=== PATIENT | male | born 1945 | race Caucasian/White ===

== ENCOUNTER → 2016-12-19 | Outpatient (CLI) | payer OTHER ==
[~2016-12-19] MED LIST: AMOX875T PO; ASPI81TA28 PO; ATOR-22 PO; FLUC100T4 PO; FLUC200T4 PO; HMLI7525 SC; HYDR-5688 PO; IMDSR/30 PO; INSDGIPEN SC; ISR/30 PO; LOSA1TAB PO; NVLGI7030 SC; OXYC-57 PO; TEMA15CA4 PO
== END | disposition home or self-care (01) ==
LOC: C.LABSPEC 17:03
PROVIDERS: ATTEND Orthopaedic Surgery
DX: M86.142 Other acute osteomyelitis, left hand (principal)

== ENCOUNTER → 2017-01-30 | Outpatient (CLI) | payer OTHER | END | disposition home or self-care (01) | LOC: C.LABSPEC 17:11 | PROVIDERS: ATTEND Orthopaedic Surgery | DX: M86.9 Osteomyelitis, unspecified (principal); I96 Gangrene, not elsewhere classified ==

== ENCOUNTER → 2017-02-07 | Outpatient (CLI) | payer OTHER | END | disposition home or self-care (01) | LOC: C.LABSPEC 12:23 | PROVIDERS: ATTEND Internal Medicine Infectious Disease | DX: T81.4XXA Infection following a procedure, initial encounter (principal); Y83.9 Surgical procedure, unspecified as the cause of abnormal reaction of the patient, or of later complication, without mention of misadventure at the time of the procedure ==

== ENCOUNTER 2017-02-18 12:00 | Inpatient (IN) | payer OTHER ==
[~2017-02-18] VITALS: Ht 175.3 cm; Wt 74.0 kg
[2017-02-18] MEDS ORDERED: AMPICILLIN SOD/SULBACTAM SOD 3 GM VIAL IV STA (13:03)
[2017-02-18] MEDS ORDERED: VANCOMYCIN INJ 1,500 MG in SODIUM CHLORIDE 0.9% 250ML 250 ML IV STA (13:03)
[2017-02-18] MEDS ORDERED: AMPICILLIN/SULBACTAM SOD INJ 1,500 MG in SODIUM CHLORIDE 0.9% 100ML 100 ML IV STA (13:07)
[2017-02-18] MEDS ORDERED: VANCOMYCIN INJ 1,500 MG in SODIUM CHLORIDE 0.9% 500ML 500 ML IV SCH (13:15)
[2017-02-18] MEDS ORDERED: NVLGI7030 SC (13:18)
[2017-02-18] MEDS ORDERED: LOSA1TAB PO (13:18)
[2017-02-18] MEDS ORDERED: HYDR-5688 PO (13:18)
[2017-02-18] MEDS ORDERED: ATOR-22 PO (13:18)
[2017-02-18] MEDS ORDERED: ISR/30 PO (13:18)
[2017-02-18] MEDS ORDERED: ASPI81TA28 PO (13:18)
[2017-02-18] MEDS ORDERED: HMLI7525 SC (13:18)
[2017-02-18] MEDS ORDERED: TEMA15CA4 PO (13:18)
[2017-02-18] MEDS ORDERED: OXYC-57 PO (13:22)
--- NOTE | 2017-02-18 13:22 | DIAGNOSTIC IMAGING REPORT ---
LEFT HAND MIN 3 VIEWS ROUTINE CLINICAL HISTORY: left hand pain infection COMPARISON: None. DISCUSSION: There are postsurgical changes of a fourth digit amputation at the level of the metacarpal phalangeal joint. There are postsurgical changes of a third digit amputation at the level of the proximal third metacarpal. There are overlying skin jefry present. No acute fractures are visualized. There is dorsal soft tissue swelling. Vascular calcifications are evident. Degenerative changes are present most pronounced at the level of the first metatarsal phalangeal joint. IMPRESSION: 1. Postsurgical changes 2. Soft tissue swelling 3. No acute fractures. Electronically signed by: Sherwin Crane M.D. 02/18/2017 1:21 PM Dictated Date/Time: 02/18/2017 1:19 PM
[2017-02-18 13:39] LABS: BASO % 0.4 %; BASO ABS # 0.02 K/uL (0-0.2); COMPLETE YES; EOS % 4.2 %; IG% 0.2 %; LYMPH % 25.5 %; MEAN CORPUSCULAR HEMOGLOBIN 26.5 pg (25-34); MEAN CORPUSCULAR HGB CONC 33.9 g/dl (32-36); MEAN PLATELET VOLUME 8.8 fL (7.4-10.4); MONO % 5.9 %; NEUT % 63.8 %; PLATELET COUNT 206 K/uL (130-400); RED BLOOD COUNT 4.87 M/uL (4.7-6.1); WHITE BLOOD COUNT 4.71 K/uL (4.8-10.8)
[2017-02-18 14:04] LABS: BUN/CREATININE RATIO 14.7 (10-20); C-REACTIVE PROTEIN 0.41 mg/dl (0-0.29); CALCIUM 9.1 mg/dl (8.5-10.1); CREATININE 1.3 mg/dl (0.60-1.40); POTASSIUM 4.6 mmol/L (3.5-5.1)
[2017-02-18] MEDS ORDERED: NovoLIN-R INSULIN PER UNIT CHARGE SC STA (14:07)
[2017-02-18 14:21] LABS: BETA-HYDROXYBUTYRATE 0.82 mg/dL (0.2-2.81)
[2017-02-18 14:40] VITALS: O2SAT 96; BMI 24.1
[2017-02-18] MEDS ORDERED: POLYETHYLENE (MIRALAX) 17 GM PACK PO PRN (15:00)
[2017-02-18] MEDS ORDERED: ALUMINUM/MAGNESIUM/SIMETH (MAALOX MAX) 30 ML UDC PO PRN (15:00)
[2017-02-18] MEDS ORDERED: ONDANSETRON INJ 2 MG/ML 2 ML VIAL IV PRN (15:00)
[2017-02-18] MEDS ORDERED: MAGNESIUM HYDROXIDE SUSP 30 ML UDC PO PRN (15:00)
[2017-02-18] MEDS ORDERED: ACETAMINOPHEN 325 MG TAB PO PRN (15:00)
[2017-02-18] MEDS ORDERED: GLUCOSE 40% GEL 15 GM TUBE PO PRN (15:15)
[2017-02-18] MEDS ORDERED: DEXTROSE 50% 50 ML SYR IV PRN (15:15)
[2017-02-18] MEDS ORDERED: GLUCAGON FOR INJ 1 MG VIAL SQ PRN (15:15)
[2017-02-18] MEDS ORDERED: GLUCOSE 10 TABS/TUBE PO PRN (15:15)
--- NOTE | 2017-02-18 15:28 | History and Physical ---
History & Physical Date & Time of Service: Feb 18, 2017 at 15:23 Chief Complaint: Diabetic, Recheck Of Hand Primary Care Physician: No Doctor, Assigned History of Present Illness Source: patient, family Mr. Edmond is a 71 y/o male with PMHx of T2DM and HTN who presents to the ED c/ o worsening erythema, edema, and purulent drainage at 3rd and 4th L finger amputation site x 3 days. On 01/25 patient underwent third and fourth left finger amputation due to nonhealing diabetic wounds performed by Dr. Ledezma. Patient reports a long duration of antibiotic treatment with penicillins. On he was converted to Augmentin twice a day by infectious disease. He reports compliance with antibiotic therapy. Patient was evaluated by home nursing and discussed with Dr. Ledezma who recommended ED evaluation. Patient first noticed purulent drainage 3 days ago. He complains of mild pain that he describes as a pressure and associated edema. Previous cx revealed pansensitive enterococcus, MSSA tetracycline resistant, non albicans yeast. F/U Cx on 01/30 grew coag-neg staph, unidentified gram neg malik, peptostreptococcus prevotella, and pansensitive enterococcus. He just recently established with PCP in [place] but cannot recall her name. He reports a sliding scale insulin regimen including 70/30 and 75/25. He does not follow with an picc nurse for this he states his PCP normally manages this. In the ED, XR reveals soft tissue swelling. Mild leukopenia of 4.7. ESR 30. Glucose of 414 which improved to 319 with Novolin 10 units. He was started on Unasyn and Vancomycin. Past Medical/Surgical History 1. T2DM 2. HTN 3. H/O Chest Pain Family History No pertinent family history Family History reviewed - patient denies Social History Smoking Status: Never Smoker Smokeless Tobacco Use: No Alcohol Use: socially Drug Use: none Allergies Coded Allergies: No Known Allergies (Unverified , 02/18/17) Home Medications Scheduled Aspirin (Aspirin Ec), 81 MG PO DAILY Atorvastatin (Lipitor), 20 MG PO BID Insulin Aspart 70/30 (Novolog Mix 70/30), 1 DOSE SC UD Insulin Lispro 75/25 (Humalog Mix 75/25), 1 DOSE SC UD Isosorbide Mononitrate (Isosorbide Mononitrate ER), 15 MG PO DAILY Losartan Potassium (Cozaar), 25 MG PO DAILY Temazepam (Restoril), 15 MG PO HS Scheduled PRN Hydrocodone/Acetaminophen 5MG/325MG ([place] 5MG/325MG), 1-2 TABS PO [id number] PRN for Pain Oxycodone/Acetaminophen 5MG/325MG (Percocet 5MG/325MG), 1-2 TABLETS PO [id number] PRN for Pain Review of Systems Constitutional: No fever, No chills ENT: No nasal symptoms, No sore throat, No trouble swallowing Respiratory: No cough, No shortness of breath Cardiovascular: No chest pain, No palpitations Abdomen: No pain, No nausea, No vomiting, No diarrhea, No constipation Musculoskeletal: + problem reported (edema of L hand at site of amputations; purulent drainage), No swelling, No calf pain Genitourinary - Male: No dysuria Neurologic: No numbness/tingling Integumentary: + new/changing skin lesions (see musculoskeletal) Physical Exam Vital Signs Date Time Temp Pulse Resp B/P (MAP) Pulse Ox O2 Delivery O2 Flow Rate FiO2 02/18/17 14:40 96 Room Air 02/18/17 13:54 81 16 132/84 96 Room Air 02/18/17 12:06 36.6 78 20 119/84 98 Room Air General Appearance: WD/WN, no apparent distress Head: normocephalic, atraumatic Eyes: sclerae normal ENT: hearing grossly normal Neck: supple, no JVD, trachea midline Respiratory/Chest: lungs clear, normal breath sounds, no respiratory distress, no accessory muscle use Cardiovascular: regular rate, rhythm, no gallop, no murmur Abdomen/GI: normal bowel sounds, non tender, soft Back: normal inspection, no CVA tenderness Extremities/Musculoskelatal: no calf tenderness, no pedal edema, + pertinent finding (amputation of 3rd and 4th fingers with jefry intact to surgical incision; purulent drainage noted; mild erythema at base of amputations; adequate cap refill and 2+ pulses; hematoma proximal to L thumb) Neurologic/Psych: alert, oriented x 3 Skin: normal color, warm/dry Diagnostics Laboratory Results Results Past 24 Hours Test 02/18/17 12:50 02/18/17 15:03 Range/Units White Blood Count 4.71 4.8-10.8 K/uL Red Blood Count 4.87 4.7-6.1 M/uL Hemoglobin 12.9 14.0-18.0 g/dL Hematocrit 38.0 42-52 % Mean Corpuscular Volume 78.0 80-100 fL Mean Corpuscular Hemoglobin 26.5 25-34 pg Mean Corpuscular Hemoglobin Concent 33.9 32-36 g/dl Platelet Count 206 130-400 K/uL Mean Platelet Volume 8.8 7.4-10.4 fL Neutrophils (%) (Auto) 63.8 % Lymphocytes (%) (Auto) 25.5 % Monocytes (%) (Auto) 5.9 % Eosinophils (%) (Auto) 4.2 % Basophils (%) (Auto) 0.4 % Neutrophils # (Auto) 3.00 1.4-6.5 K/uL Lymphocytes # (Auto) 1.20 1.2-3.4 K/uL Monocytes # (Auto) 0.28 0.11-0.59 K/uL Eosinophils # (Auto) 0.20 0-0.5 K/uL Basophils # (Auto) 0.02 0-0.2 K/uL RDW Standard Deviation 37.5 36.4-46.3 fL RDW Coefficient of Variation 13.2 11.5-14.5 % Immature Granulocyte % (Auto) 0.2 % Immature Granulocyte # (Auto) 0.01 0.00-0.02 K/uL Erythrocyte Sedimentation Rate 30 0-14 mm/hr Sodium Level 134 136-145 mmol/L Potassium Level 4.6 3.5-5.1 mmol/L Chloride Level 99 98-107 mmol/L Carbon Dioxide Level 28 21-32 mmol/L Anion Gap 7.0 3-11 mmol/L Blood Urea Nitrogen 19 7-18 mg/dl Creatinine 1.30 0.60-1.40 mg/dl Est Creatinine Clear Calc Drug Dose 53.7 ml/min Estimated GFR () 64.5 Estimated GFR (Non- 55.7 BUN/Creatinine Ratio 14.7 10-20 Random Glucose 414 70-99 mg/dl Calcium Level 9.1 8.5-10.1 mg/dl C-Reactive Protein 0.41 0-0.29 mg/dl Beta-Hydroxybutyric Acid 0.82 0.2-2.81 mg/dL Bedside Glucose 319 70-99 mg/dl Diagnostic Radiology LEFT HAND MIN 3 VIEWS ROUTINE DISCUSSION: There are postsurgical changes of a fourth digit amputation at the level of the metacarpal phalangeal joint. There are postsurgical changes of a third digit amputation at the level of the proximal third metacarpal. There are overlying skin jefry present. No acute fractures are visualized. There is dorsal soft tissue swelling. Vascular calcifications are evident. Degenerative changes are present most pronounced at the level of the first metatarsal phalangeal joint. IMPRESSION: 1. Postsurgical changes 2. Soft tissue swelling 3. No acute fractures. Impression Assessment and Plan Mr. Edmond is a 71 y/o male with PMHx of T2DM and HTN who presents to the ED c/ o worsening erythema, edema, and purulent drainage at 3rd and 4th L finger amputation site x 3 days. L Hand Cellulitis S/P 3rd-4th Finger Amputation on 01/25: Possible Osteomyelitis? - Limited ability to do extensive imaging given jefry in place - Unasyn 1.5 g IV Q6H and Vancomycin - Will hold daily ASA in anticipation of washout - Consult Orthopedics - discussed case with Russell Carrillo PA-C - plan for washout 02/19 - Consult ID - appreciate recommendations -- Outpatient note reviewed and patient refused official consultation - Cx reviewed for pansensitive enterococcus and multiple organisms including non- albicans yeast T2DM: - Check A1c - Hold home 70/30 and 75/25 - recommend D/Cing this regimen - Lantus 13 units BID and SSI -- Since NPO for procedure 02/19 will half lantus at 6 units in AM for coverage - Recommend revised insulin regimen that promotes compliance and ease at D/C - Lipitor 20 mg BID - reports no H/O HLD but given due to DM HTN: - Losartan 25 mg daily Intermittent CP: - Denies cardiac history - denies PE/DVT, MS, CHF - Reports nitrate is for intermittent CP alone - continue DVT Prophylaxis: BERTA/SCDs - Avoid chemical prophylaxis with wash-out/debridement Code Status: FULL RESUSCITATION Disposition: - Wash-out 02/19 per orthopedics - Adjust insulin regimen - ID recommendations for Abx - PICC? Osteo? Level of Care Med/Surg Advanced Directives Existing Living Will: Yes Existing Power of Produce Field Merchandiser: Yes (KERON ) Resuscitation Status FULL RESUSCITATION VTE Prophylaxis VTE Risk Assessment Done? Y/N: Yes Risk Level: Moderate Given or contraindicated: T.E.D. Stockings, SCD's Assessment and Plan Attending Addendum: I have physically seen and examined this patient, directed their medical care, supervised the Physician Store Group Manager's activity, and agree with the H&P as noted above, with the following changes: NONE.
[2017-02-18 16:09] VITALS: BP 166/87; PULSE 87; TEMP 36.4; O2SAT 98
[2017-02-18] MEDS: HYDROCODONE/ACETAMOPHEN 5/325MG TAB PO PRN ×2 (17:46→22:30)
[2017-02-18] MEDS: INSULIN ASPART 100 UNITS/ML 3 ML PEN SC SCH ×2 (18:31→21:23)
--- NOTE | 2017-02-18 18:32 | EMERGENCY ROOM VISIT NOTE ---
History Report prepared by Arti: Narcisa Pinon Under the Supervision of: Dr. Erik Francis D.O. First contact with patient: 12:13 Chief Complaint: WOUND RECHECK Stated Complaint: DIABETIC, RECHECK OF HAND Nursing Triage Summary: january 25 pt had left 3rd and 4th fingers amputated. home health sent pt in due to yellow drainage. some jefry still intact. area red, swollen and draining yellow drainage. History of Present Illness The patient is a 71 year old male who presents to the Emergency Room with complaints of a worsening wound infection that started 3 days ago. The patient had the third and fourth digits of his left hand amputated [address] Ledezma - Orthopedic Surgery. The patient was evaluated by home nursing earlier today and they called Dr. Ledezma who recommended coming into the ED for further evaluation. The patient has been experiencing erythema and purulent drainage from the incision site for the past 3 days. He denies any increased pain in the area of the incision. He also denies fevers, chest pain, shortness of breath, nausea, vomiting, and diarrhea. The patient adds that he is on antibiotics. He also states that he is following with Dr. Khanna - Infectious Disease and just saw her a little over one week ago. The patient states that his fingers were amputated secondary to infection. He is diabetic. Source of History: patient Onset: 3 days ago Position: hand (left) Quality: other (wound infection) Timing: worsening Associated Symptoms: No fevers, No chest pain, No SOB, No nausea, No vomiting, No diarrhea Note: erythema, purulent drainage from incision, no increased pain around incision Review of Systems See HPI for pertinent positives & negatives. A total of 10 systems reviewed and were otherwise negative. Past Medical & Surgical Medical Problems: (1) Cellulitis of left hand (2) Diabetes Family History No pertinent family history Social History Smoking Status: Never Smoker Marital Status: single Current/Historical Medications Scheduled Aspirin (Aspirin Ec), 81 MG PO DAILY Atorvastatin (Lipitor), 20 MG PO BID Insulin Aspart 70/30 (Novolog Mix 70/30), 1 DOSE SC UD Insulin Lispro 75/25 (Humalog Mix 75/25), 1 DOSE SC UD Isosorbide Dinitrate (Isordil), 15 MG PO DAILY Losartan Potassium (Cozaar), 25 MG PO DAILY Temazepam (Restoril), 15 MG PO HS Scheduled PRN Hydrocodone/Acetaminophen 5MG/325MG ([place] 5MG/325MG), 1-2 TABS PO [id number] PRN for Pain Oxycodone/Acetaminophen 5MG/325MG (Percocet 5MG/325MG), 1-2 TABLETS PO [id number] PRN for Pain Allergies Coded Allergies: No Known Allergies (Unverified , 02/18/17) Physical Exam Vital Signs Date Time Temp Pulse Resp B/P (MAP) Pulse Ox O2 Delivery O2 Flow Rate FiO2 02/18/17 14:40 96 Room Air 02/18/17 13:54 81 16 132/84 96 Room Air 02/18/17 12:06 36.6 78 20 119/84 98 Room Air Physical Exam GENERAL: alert, sitting up in bed, disheveled, well appearing, well nourished, no acute distress, non-toxic EYE EXAM: normal conjunctiva OROPHARYNX: no exudate, no erythema, lips, buccal mucosa, and tongue normal and mucous membranes are moist NECK: supple, no nuchal rigidity, no adenopathy, non-tender LUNGS: Clear to auscultation. Normal chest wall mechanics HEART: no murmurs, S1 normal and S2 normal ABDOMEN: abdomen soft, non-tender, normo-active bowel sounds, no masses, no rebound or guarding. BACK: Back is symmetrical on inspection and there is no deformity, no midline tenderness, no CVA tenderness. SKIN: no rashes and no bruising UPPER EXTREMITIES: Left hand has 6 jefry over dorsal aspect and 7 jefry on palmar aspect, 7 cm x 4 cm incision in a T shape with removal of the left third and fourth digits, unable to fully extend the second and fifth digits of the left hand, erythema tracking on the dorsal aspect of the left hand, radial pulse 2/4 on the left. LOWER EXTREMITIES: No pitting edema. NEURO EXAM: Normal sensorium, cranial nerves II-XII grossly intact, normal speech, no gross weakness of legs. Medical Decision & Procedures ER Provider Diagnostic Interpretation: Radiology results as stated below per my review and the radiologist's interpretation: LEFT HAND MIN 3 VIEWS ROUTINE DISCUSSION: There are postsurgical changes of a fourth digit amputation at the level of the metacarpal phalangeal joint. There are postsurgical changes of a third digit amputation at the level of the proximal third metacarpal. There are overlying skin jefry present. No acute fractures are visualized. There is dorsal soft tissue swelling. Vascular calcifications are evident. Degenerative changes are present most pronounced at the level of the first metatarsal phalangeal joint. IMPRESSION: 1. Postsurgical changes 2. Soft tissue swelling 3. No acute fractures. Electronically signed by: Sherwin Crane M.D. 02/18/2017 1:21 PM Dictated Date/Time: 02/18/2017 1:19 PM Laboratory Results 02/18/17 12:50 Red Blood Count 4.87, Mean Corpuscular Volume 78.0, Mean Corpuscular Hemoglobin 26.5, Mean Corpuscular Hemoglobin Concent 33.9, Mean Platelet Volume 8.8, Neutrophils (%) (Auto) 63.8, Lymphocytes (%) (Auto) 25.5, Monocytes (%) (Auto) 5.9, Eosinophils (%) (Auto) 4.2, Basophils (%) (Auto) 0.4, Neutrophils # (Auto) 3.00, Lymphocytes # (Auto) 1.20, Monocytes # (Auto) 0.28, Eosinophils # (Auto) 0.20, Basophils # (Auto) 0.02 02/18/17 12:50 Test 02/18/17 12:50 White Blood Count 4.71 K/uL (4.8-10.8) Red Blood Count 4.87 M/uL (4.7-6.1) Hemoglobin 12.9 g/dL (14.0-18.0) Hematocrit 38.0 % (42-52) Mean Corpuscular Volume 78.0 fL (80-100) Mean Corpuscular Hemoglobin 26.5 pg (25-34) Mean Corpuscular Hemoglobin Concent 33.9 g/dl (32-36) Platelet Count 206 K/uL (130-400) Mean Platelet Volume 8.8 fL (7.4-10.4) Neutrophils (%) (Auto) 63.8 % Lymphocytes (%) (Auto) 25.5 % Monocytes (%) (Auto) 5.9 % Eosinophils (%) (Auto) 4.2 % Basophils (%) (Auto) 0.4 % Neutrophils # (Auto) 3.00 K/uL (1.4-6.5) Lymphocytes # (Auto) 1.20 K/uL (1.2-3.4) Monocytes # (Auto) 0.28 K/uL (0.11-0.59) Eosinophils # (Auto) 0.20 K/uL (0-0.5) Basophils # (Auto) 0.02 K/uL (0-0.2) RDW Standard Deviation 37.5 fL (36.4-46.3) RDW Coefficient of Variation 13.2 % (11.5-14.5) Immature Granulocyte % (Auto) 0.2 % Immature Granulocyte # (Auto) 0.01 K/uL (0.00-0.02) Erythrocyte Sedimentation Rate 30 mm/hr (0-14) Anion Gap 7.0 mmol/L (3-11) Est Creatinine Clear Calc Drug Dose 53.7 ml/min Estimated GFR () 64.5 Estimated GFR (Non- 55.7 BUN/Creatinine Ratio 14.7 (10-20) Calcium Level 9.1 mg/dl (8.5-10.1) C-Reactive Protein 0.41 mg/dl (0-0.29) Beta-Hydroxybutyric Acid 0.82 mg/dL (0.2-2.81) Hepatitis C Antibody Screen NEG (NEG) Laboratory results per my review. Medications Administered Medications (Trade) Dose Ordered Sig/[place] Route Start Time Stop Time Status Last Admin Dose Admin Ampicillin Sodium/ Sulbactam Sodium 1500 mg/Sodium Chloride 104 ml @ 208 mls/hr NOW STAT IV 02/18/17 13:07 02/18/17 13:36 DC 02/18/17 13:54 208 MLS/HR Vancomycin HCl 1500 mg/Sodium Chloride 530 ml @ 200 mls/hr TODAY@1315 IV 02/18/17 13:15 02/18/17 15:53 DC 02/18/17 14:45 200 MLS/HR Insulin Human Regular (novoLIN-R U-100 PER UNIT) 10 units NOW STAT SC 02/18/17 14:07 02/18/17 14:08 DC 02/18/17 15:07 10 UNITS Acetaminophen/ Hydrocodone Bitart ([place] 5/325 Tab) 1-mild/ mod pain 2 -sev... Q4H PRN PO 02/18/17 15:00 03/04/17 14:59 02/18/17 17:46 2 TAB ED Course ED COURSE: Vital signs were reviewed and showed normal vitals. The patients medical record was reviewed The above diagnostic studies were performed and reviewed. ED treatments and interventions as stated above. 1219: The patient was evaluated in room C12. A complete history and physical examination was performed. 1252: I reviewed the patient's case with Dr. Ledezma - Orthopedic Surgery. He recommended admitting the patient for IV antibiotics. 1307: Ordered Ampicillin Sodium/Sulbactam Sodium 1500 mg/Sodium Chloride 104 ml @ 208 mls/hr IV 1315: Ordered Vancomycin HCl 1500 mg/Sodium Chloride 530 ml @ 200 mls/hr IV 1354: Russell Carrillo PA-C - Orthopedic Surgery is going to come in to evaluate the patient. 1407: Ordered Insulin Human Regular 10 units SC 1428: Russell Carrillo PA-C evaluated the patient. He is going to wash out the incision tomorrow. 1430: I reviewed the patient's case with [facility] She will evaluate the patient for further management. 1432: Upon reevaluation, the patient is resting comfortably. I discussed my findings with the patient and she understands and agrees with the treatment plan. Based on the patients age, coexisting illnesses, exam and lab findings the decision to treat as an inpatient was made. The patient remained stable while under my care. The patient will be evaluated for further management. Medical Decision Differential diagnosis includes etiologies such as cellulitis, abscess, MRSA infection, DVT, necrotizing fasciitis, dermatitis, drug eruption, as well as others were entertained. Medication Reconciliation: I attest that I have personally reviewed the patient' s current medication list. Blood pressure screening: Patient was found to have normal blood pressure on screening and does not require follow-up. Patient is a 71-year-old male who presents the ER referred in by primary care doctor for drainage of his recent surgery which was performed by Dr. Ledezma. His wound does have erythema and mild surrounding drainage. X-rays show no obvious osteomyelitis. CBC was unremarkable. BMP shows a BSG of 414. He was given 10 units of subcutaneous insulin. He was given IV antibiotics and fluids. Orthopedics saw him at bedside and was admitted to internal medicine for likely washout tomorrow. Consults Time Called: [phone] Consulting Physician: Dr. Ledezma - Orthopedic Surgery Returned Call: [phone] I reviewed the patient's case with Dr. Ledezma - Orthopedic Surgery. He recommended admitting the patient for IV antibiotics. Additional Consults: Time Called: 1429 Consulted Physician: Lexi GAITAN Returned Call: [phone] Additional Comments: I reviewed the patient's case with Lexi GAITAN. She will evaluate the patient for further management. Impression Primary Impression: Post op infection Additional Impression: Hyperglycemia Scribe Attestation The scribe's documentation has been prepared under my direction and personally reviewed by me in its entirety. I confirm that the note above accurately reflects all work, treatment, procedures, and medical decision making performed by me. Departure Information Dispostion Being Evaluated By Hospitalist Referrals No Doctor, Assigned (PCP) Patient Instructions [facility] Problem Qualifiers
--- NOTE | 2017-02-18 20:41 | ORTHOPEDIC CONSULTATION ---
DATE OF CONSULTATION: 02/18/2017 Special attention to left hand infection. HISTORY OF PRESENT ILLNESS: This gentleman is well-known to me, who is status post amputation of the third and fourth digits recently, he presents with persisted infection. Home nursing noted increasing drainage from his surgical site. I recommended inpatient admission. He is currently admitted on the hospitalist service. PAST MEDICAL HISTORY: Hypertension, poorly-controlled diabetes. OBJECTIVE: Left hand exam shows jefry which are in place. He has a small amount of surrounding erythema over the surgical incision from ray amputation. He has negative Kanavel's signs. He has moderate purulent drainage at the surgical site. ASSESSMENT: A 71-year-old male with: 1. Persistent left hand diabetic infection. 2. Poorly-controlled diabetes. PLAN: At this point, I feel it would be reasonable to take him to the operating tomorrow, perform irrigation, debridement and application of VAC. We will continue antibiotics as per infectious diseases as he does have multiple organisms. I certainly feel a contributing factor to continued infection is poorly controlled sugars. We had arranged for home health care to help with managing his blood sugars. Current blood sugars have been 300-400 range. Attempt for tight glycemic control. Plan for surgical intervention tomorrow with irrigation, debridement and application of wound VAC sponge. ED
[2017-02-18] MEDS ORDERED: VANCOMYCIN CONSULT ACTIVE PRN (20:45)
--- NOTE | 2017-02-18 20:49 | Pharmacy Progress Note ---
Pharmacy Antibiotic Consult Date of Service: Feb 18, 2017. Pharmacy Dosing Scope Pharmacy is consulted to initiate VANCOMYCIN IV dosing therapy, order appropriate labs and adjust drug dose/frequency. Subjective The patient is a 71 year old male admitted on Feb 18, 2017 at 15:04. Objective Height (Feet): 5 Height (Inches): 9.00 Weight (Kilograms): 74.000 Lab Results (24hrs): Test 02/18/17 12:50 02/18/17 16:11 02/18/17 19:51 White Blood Count 4.71 K/uL (4.8-10.8) Red Blood Count 4.87 M/uL (4.7-6.1) Hemoglobin 12.9 g/dL (14.0-18.0) Hematocrit 38.0 % (42-52) Mean Corpuscular Volume 78.0 fL (80-100) Mean Corpuscular Hemoglobin 26.5 pg (25-34) Mean Corpuscular Hemoglobin Concent 33.9 g/dl (32-36) Platelet Count 206 K/uL (130-400) Mean Platelet Volume 8.8 fL (7.4-10.4) Neutrophils (%) (Auto) 63.8 % Lymphocytes (%) (Auto) 25.5 % Monocytes (%) (Auto) 5.9 % Eosinophils (%) (Auto) 4.2 % Basophils (%) (Auto) 0.4 % Neutrophils # (Auto) 3.00 K/uL (1.4-6.5) Lymphocytes # (Auto) 1.20 K/uL (1.2-3.4) Monocytes # (Auto) 0.28 K/uL (0.11-0.59) Eosinophils # (Auto) 0.20 K/uL (0-0.5) Basophils # (Auto) 0.02 K/uL (0-0.2) RDW Standard Deviation 37.5 fL (36.4-46.3) RDW Coefficient of Variation 13.2 % (11.5-14.5) Immature Granulocyte % (Auto) 0.2 % Immature Granulocyte # (Auto) 0.01 K/uL (0.00-0.02) Erythrocyte Sedimentation Rate 30 mm/hr (0-14) Sodium Level 134 mmol/L (136-145) Potassium Level 4.6 mmol/L (3.5-5.1) Chloride Level 99 mmol/L (98-107) Carbon Dioxide Level 28 mmol/L (21-32) Anion Gap 7.0 mmol/L (3-11) Blood Urea Nitrogen 19 mg/dl (7-18) Creatinine 1.30 mg/dl (0.60-1.40) Est Creatinine Clear Calc Drug Dose 53.7 ml/min Estimated GFR () 64.5 Estimated GFR (Non- 55.7 BUN/Creatinine Ratio 14.7 (10-20) Random Glucose 414 mg/dl (70-99) Calcium Level 9.1 mg/dl (8.5-10.1) C-Reactive Protein 0.41 mg/dl (0-0.29) Beta-Hydroxybutyric Acid 0.82 mg/dL (0.2-2.81) Hepatitis C Antibody Screen NEG (NEG) Bedside Glucose 260 mg/dl (70-99) 132 mg/dl (70-99) Recent Pertinent Medications Item Value Date Time Ampicillin Sodium/ 104 ml @ 200 mls/hr 02/18/171999 Sulbactam Sodium Q6H/IV 1500 mg/Sodium Chloride Assessment & Plan 71yo male presenting with cellulitis s/p left 3rd and 4th finger amputations on 02/15/17. In addition to VANCOMYCIN, patient is also receiving UNASYN. VANCOMYCIN: * Loading dose: VANCOMYCIN 1500mg (20mg/kg) IV X 1 dose then VANCOMYCIN 1150mg (~15mg/kg) IV every 18 hours. * Estimated Pk parameters: Vd ~0.7 L/kg ke ~0.049 t1/2 ~14 hours * Goal trough level estimate: between 15 - 20 mcg/mL. * Trough level has been ordered for: @ 1999. Pharmacy will continue to follow and will adjust dose/frequency as necessary. Thank you
[2017-02-18] MEDS: AMPICILLIN/SULBACTAM SOD INJ 1,500 MG in SODIUM CHLORIDE 0.9% 100ML 100 ML IV SCH (21:17)
[2017-02-18] MEDS: TEMAZEPAM 15 MG CAP PO SCH (21:22)
[2017-02-18] MEDS: INSULIN GLARGINE SOLOSTAR 100 UNITS/ML 3 ML PEN SC SCH (21:28)
[2017-02-18] MEDS: ATORVASTATIN 20 MG TAB PO SCH (22:25)
[2017-02-19] VITALS (11 sets, daily range): BP systolic 99–139; BP diastolic 54–85; PULSE 68–83; TEMP 36.1–36.6; O2SAT 96–100; BMI 24.1
[2017-02-19] MEDS ORDERED: IMDSR/30 PO (00:06)
[2017-02-19] MEDS ORDERED: MoRPHine SULFATE 2 MG/ML CARP IV STA (01:39)
[2017-02-19] MEDS: AMPICILLIN/SULBACTAM SOD INJ 1,500 MG in SODIUM CHLORIDE 0.9% 100ML 100 ML IV SCH ×4 (02:03→22:07)
[2017-02-19] MEDS ORDERED: INSULIN GLARGINE SOLOSTAR 100 UNITS/ML 3 ML PEN SC STA (07:15)
[2017-02-19] MEDS ORDERED: VANCOMYCIN INJ 1,150 MG in SODIUM CHLORIDE 0.9% 250ML 250 ML IV SCH (08:00)
[2017-02-19] MEDS: ISOSORBIDE MONONITRATE 30 MG TABCR PO SCH (08:34)
[2017-02-19] MEDS: ATORVASTATIN 20 MG TAB PO SCH ×2 (08:35→20:00)
[2017-02-19] MEDS: LOSARTAN POTASSIUM 25 MG TAB PO SCH (08:35)
[2017-02-19] MEDS: INSULIN ASPART 100 UNITS/ML 3 ML PEN SC SCH ×5 (08:40→22:37)
[2017-02-19] MEDS ORDERED: MoRPHine SULFATE 2 MG/ML CARP IV PRN ×2 (09:00)
--- NOTE | 2017-02-19 09:08 | Hospitalist Progress Note ---
Hospitalist Progress Note Date of Service Feb 19, 2017. Subjective Pt evaluation today including: conversation w/ patient, physical exam, chart review, lab review, review of studies, review of inpatient medication list Pain: Minimal in L hand PO Intake: NPO for Procedure Voiding: no voiding problems Patient seen and evaluated. Admitted on 02/18 for purulent drainage, erythema, and edema at surgical site of 3rd-4th finger amputation. Reporting pain is present but "okay" erythema remains and purulent drainage visible. Feeling well overall. Plan for wash-out/drainage with wound vac placed. Constitutional: No fever, No chills ENT: No nasal symptoms, No sore throat, No trouble swallowing Respiratory: No cough, No shortness of breath Cardiovascular: No chest pain, No palpitations Abdomen: No pain, No nausea, No vomiting, No diarrhea, No constipation Musculoskeletal: + problem reported (minimal pain of L hand; drainage; edema ) Male : No dysuria Neurologic: No numbness/tingling Heme: No abnormal bleeding/bruising Skin: No rash Medications Current Inpatient Medications Medications (Trade) Dose Ordered Sig/[place]inton Route Start Time Stop Time Status Last Admin Dose Admin Acetaminophen (Tylenol Tab) 650 mg Q4H PRN PO 02/18/17 15:00 03/20/17 14:59 Al Hydrox/Mg Hydrox/Simethicone (Maalox Max Susp) 15 ml Q4H PRN PO 02/18/17 15:00 03/20/17 14:59 Magnesium Hydroxide (Milk Of Magnesia Susp) 30 ml Q6H PRN PO 02/18/17 15:00 03/20/17 14:59 Polyethylene (Miralax Powder Packet) 17 gm DAILY PRN PO 02/18/17 15:00 03/20/17 14:59 Ondansetron HCl (Zofran Inj) 4 mg Q6H PRN IV 02/18/17 15:00 03/20/17 14:59 Atorvastatin Calcium (Lipitor Tab) 20 mg BID PO 02/18/17 20:00 03/20/17 20:59 02/19/17 08:35 20 MG Acetaminophen/ Hydrocodone Bitart ([place] 5/325 Tab) 1-mild/ mod pain 2 -sev... Q4H PRN PO 02/18/17 15:00 03/04/17 14:59 02/18/17 22:30 2 TAB Losartan Potassium (coZAAR TAB) 25 mg DAILY PO 02/19/17 08:00 03/21/17 08:59 02/19/17 08:35 25 MG Temazepam (Restoril Cap) 15 mg HS PO 02/18/17 21:00 03/20/17 20:59 02/18/17 21:22 15 MG Isosorbide Mononitrate (Imdur Ext Rel Tab) 15 mg DAILY PO 02/19/17 08:00 03/21/17 07:59 02/19/17 08:34 15 MG Insulin Glargine (Lantus Solostar Pen) 13 unit Q12 SC 02/18/17 21:00 03/20/17 20:59 Future Hold 02/18/17 21:28 13 UNIT Insulin Aspart (novoLOG ASPART) SLIDING SCALE If C... ACHS SC 02/18/17 18:00 03/20/17 17:59 02/19/17 08:40 3 UNITS Glucose (Glucose 40% Gel) 15-30 GRAMS 15 GRAMS... UD PRN PO 02/18/17 15:15 03/20/17 15:14 Glucose (Glucose Chew Tab) 4-8 Tablets 4 Tabl... UD PRN PO 02/18/17 15:15 03/20/17 15:14 Dextrose (Dextrose 50% 50ML Syringe) 25-50ML OF 50% DW IV FOR... UD PRN IV 02/18/17 15:15 03/20/17 15:14 Glucagon (Glucagon Inj) 1 mg UD PRN SQ 02/18/17 15:15 03/20/17 15:14 Vancomycin HCl 1150 mg/Sodium Chloride 273 ml @ 125 mls/hr Q18H IV 02/19/17 08:00 03/01/17 07:59 Ampicillin Sodium/ Sulbactam Sodium 1500 mg/Sodium Chloride 104 ml @ 200 mls/hr Q6H IV 02/18/17 20:00 02/28/17 15:14 02/19/17 08:42 200 MLS/HR Vancomycin HCl (Consult) 1 ea UD PRN N/A 02/18/17 20:45 03/20/17 20:44 Objective Vital Signs Date Time Temp Pulse Resp B/P (MAP) Pulse Ox O2 Delivery O2 Flow Rate FiO2 02/19/17 07:47 Room Air 02/19/17 07:03 36.4 68 18 139/85 (103) 98 Room Air 02/19/17 00:01 36.4 74 17 124/78 (93) 97 Room Air 02/19/17 00:00 Room Air 02/18/17 16:09 36.4 87 18 166/87 (113) 98 Room Air 02/18/17 15:30 36.6 73 16 138/86 98 02/18/17 15:07 73 16 138/86 98 Room Air 02/18/17 14:40 96 Room Air 02/18/17 13:54 81 16 132/84 96 Room Air 02/18/17 12:06 36.6 78 20 119/84 98 Room Air Physical Exam General Appearance: WD/WN, no apparent distress, + thin Eyes: sclerae normal ENT: hearing grossly normal Neck: supple, no JVD, trachea midline Respiratory/Chest: lungs clear, no respiratory distress, no accessory muscle use, + decreased breath sounds Cardiovascular: regular rate, rhythm, no gallop, no murmur Abdomen: normal bowel sounds, non tender, soft Extremities: no pedal edema, no calf tenderness, + pertinent finding (L hand with amputated 3rd-4th fingers; incision intact with jefry with presence of yellow purulent drainage; erythema at surgical site; hematoma of wrist; cap refill normal; sensation intact) Neurologic/Psychiatric: alert, oriented x 3 Skin: warm/dry Laboratory Results Last 24 Hours Test 02/18/17 12:50 02/18/17 15:03 02/18/17 16:11 02/18/17 19:51 White Blood Count 4.71 K/uL Red Blood Count 4.87 M/uL Hemoglobin 12.9 g/dL Hematocrit 38.0 % Mean Corpuscular Volume 78.0 fL Mean Corpuscular Hemoglobin 26.5 pg Mean Corpuscular Hemoglobin Concent 33.9 g/dl Platelet Count 206 K/uL Mean Platelet Volume 8.8 fL Neutrophils (%) (Auto) 63.8 % Lymphocytes (%) (Auto) 25.5 % Monocytes (%) (Auto) 5.9 % Eosinophils (%) (Auto) 4.2 % Basophils (%) (Auto) 0.4 % Neutrophils # (Auto) 3.00 K/uL Lymphocytes # (Auto) 1.20 K/uL Monocytes # (Auto) 0.28 K/uL Eosinophils # (Auto) 0.20 K/uL Basophils # (Auto) 0.02 K/uL RDW Standard Deviation 37.5 fL RDW Coefficient of Variation 13.2 % Immature Granulocyte % (Auto) 0.2 % Immature Granulocyte # (Auto) 0.01 K/uL Erythrocyte Sedimentation Rate 30 mm/hr Sodium Level 134 mmol/L Potassium Level 4.6 mmol/L Chloride Level 99 mmol/L Carbon Dioxide Level 28 mmol/L Anion Gap 7.0 mmol/L Blood Urea Nitrogen 19 mg/dl Creatinine 1.30 mg/dl Est Creatinine Clear Calc Drug Dose 53.7 ml/min Estimated GFR () 64.5 Estimated GFR (Non- 55.7 BUN/Creatinine Ratio 14.7 Random Glucose 414 mg/dl Calcium Level 9.1 mg/dl C-Reactive Protein 0.41 mg/dl Beta-Hydroxybutyric Acid 0.82 mg/dL Hepatitis C Antibody Screen NEG Bedside Glucose 319 mg/dl 260 mg/dl 132 mg/dl Test 02/19/17 04:44 02/19/17 07:24 Bedside Glucose 200 mg/dl Assessment and Plan Mr. Edmond is a 71 y/o male with PMHx of T2DM and HTN who presents to the ED c/ o worsening erythema, edema, and purulent drainage at 3rd and 4th L finger amputation site x 3 days. L Hand Cellulitis S/P 3rd-4th Finger Amputation on 01/25: Possible Osteomyelitis? - Limited ability to do extensive imaging given jefry in place - Unasyn 1.5 g IV Q6H and Vancomycin - Will hold daily ASA in anticipation of washout - Consult Orthopedics - plan for washout 02/19 - Consult ID - appreciate recommendations -- Outpatient note reviewed and patient refused official consultation - Cx reviewed for pansensitive enterococcus and multiple organisms including non- albicans yeast and MSSA T2DM: - A1c - 14.4 - Hold home 70/30 and 75/25 - recommend D/Cing this regimen - patient report inconvenience - question compliance -- Reporting a sliding scale with each - would recommend against these formulations due to difficulty with efficacy and peak times - Lantus 13 units BID and SSI -- Received Lantus 6 units x 1 dose this AM while NPO - Recommend revised insulin regimen that promotes compliance and ease at D/C -- Would recommend a 1-2 times a day Lantus with either set meal time coverage - will assess insulin needs in hospital and develop a plan - Lipitor 20 mg BID - reports no H/O HLD but given due to DM HTN: - Losartan 25 mg daily Intermittent CP: - Denies cardiac history - denies PE/DVT, NV, CHF - Reports nitrate is for intermittent CP alone - continue DVT Prophylaxis: BERTA/SCDs - Avoid chemical prophylaxis with wash-out/debridement Code Status: FULL RESUSCITATION Disposition: - Wash-out 02/19 per orthopedics - Adjust insulin regimen - ID recommendations for Abx - PICC? Osteo? Continued [facility] stay due to: multiple IV medications needed
[2017-02-19 09:24] LABS: HEMATOCRIT 36.4 % (42-52); MEAN CELL VOLUME 78.8 fL (80-100); MEAN CORPUSCULAR HEMOGLOBIN 26.4 pg (25-34); MEAN CORPUSCULAR HGB CONC 33.5 g/dl (32-36); MEAN PLATELET VOLUME 8.7 fL (7.4-10.4); PLATELET COUNT 167 K/uL (130-400); RED BLOOD COUNT 4.62 M/uL (4.7-6.1); WHITE BLOOD COUNT 4.19 K/uL (4.8-10.8)
[2017-02-19 09:41] LABS: ESTIMATED AVERAGE GLUCOSE 367 mg/dl; HA1C FLAG Normal (Normal)
[2017-02-19 10:04] LABS: BUN/CREATININE RATIO 21.2 (10-20); CALCIUM 8.5 mg/dl (8.5-10.1); CREATININE 0.84 mg/dl (0.60-1.40); MAGNESIUM 2.1 mg/dl (1.8-2.4); POTASSIUM 3.9 mmol/L (3.5-5.1)
--- NOTE | 2017-02-19 10:29 | Clinical Documentation Query ---
Perri LAURIENICOL : CLINICAL DOCUMENTATION QUERY Patient is a 71 year old male admitted for worsening erythema, edema, and purulent drainage at 3rd and 4th L finger amputation site x 3 days s/p 01/25 patient underwent third and fourth left finger amputation due to nonhealing diabetic wounds. Notably, documentation includes "a long duration of antibiotic treatment with penicillins. On 02/07 he was converted to Augmentin twice a day by infectious disease. He reports compliance with antibiotic therapy". As able, please clarify as suggested below so as to avoid terminal system operator uncertainty at time of discharge. Thank you. In your clinical opinion is this patient being managed for: ( x ) Postoperative left hand wound infection/cellulitis, a complication of care and poor glucose control ( ) Other explanation of clinical findings (Please Explain) ( ) Unable to determine (Please Define) ( ) Need to Discuss ( ) Not Agree The medical record reflects the following clinical findings, treatment, and risk factors. Clinical Indicators: As above Treatment: Admission, IV antibiotics, orthopedic surgery consultation, planned return to OR for I&D and wound vac application. Risk Factors: DM, hypertension, ?CKD, ?non-compliance with antibiotic regimen Please clarify and document your clinical opinion in the progress notes and discharge summary. Terms such as "probable", "suspected", "likely", "questionable", "possible", or "still to be ruled out" are acceptable. IF IN AGREEMENT, YOU MUST DOCUMENT ABOVE DIAGNOSTIC STATEMENT IN DAILY PROGRESS NOTES AND DISCHARGE SUMMARY. This document is not part of the patient's record. Thank You, Miguel Angel Steiner, LEANNE [phone]
--- NOTE | 2017-02-19 13:43 | Medical Consult ---
Consultation Date of Consultation: Feb 19, 2017. Attending Physician: Alexey Barcenas M.D. Reason for Consultation: Left hand infection History of Present Illness Patient is a 71 yo male who presented to the ED with concerns of worsening infection of the left hand. The patient recently had his left 3rd and 4th fingers amputated due to chronic infection. The patient is a poorly controlled diabetic, and his outpatient records were reviewed in detail today. It was noted that he was seen by Dr. Wisdom in outpatient consultation for concerns of worsening hand infection. The patient was previously on PCN for his finger infection which he tolerated well but then had worsening of his state. He ultimately underwent amputation of the 3rd and 4rd fingers by Dr. Ledezma approximately 2 weeks ago after which time he was noted to have increased drainage from his surgical site. He had multiple cultures completed previously. Initial culture on 12/19/16 grew pansensitive Enterococcus Faecalis, MSSA resistant to Doxycycline, and Yeast non-alexis albicans. His follow up culture after surgery on 01/30/17 grew pansensitive Enterococcus again, coag-negative staph, GNB (not identified), Prevotella, and Peptostreptococcus. Patient's most recent culture from 02/07/2017 once again grew yeast non Alexis albicans. After seeing Dr. Khanna in consultation on 02/07/17, the patient was transitioned to PO Augmentin and has been on that medication up until current admission. Since current admission, the patient did have a left hand x-ray which showed postoperative changes consistent with 3rd and 4th digit amputation. Soft tissue swelling was noted, but no acute process was noted otherwise. The patient's white blood cell count on admission was 4.71. ESR was 30, and C reactive protein was 0.41. Patient states that he has been having drainage from the area today. His creatinine was 0.84. He was started on IV vancomycin and Unasyn empirically. I did discuss this patient with Dr. Khanna and Russell Carrillo PA-C, ortho. Past Medical/Surgical History Medical Problems: (1) Diabetes Status: Chronic (2) Hyperglycemia Status: Acute (3) Post op infection Status: Acute Surgical Hx: Left 3rd and 4th finger amputation Family History No pertinent family history Noncontributory Social History Smoking Status: Never Smoker Smokeless Tobacco Use: No Alcohol Use: socially Drug Use: none Marital Status: single Allergies Coded Allergies: No Known Allergies (Unverified , 02/18/17) Home Medications Reported Home Medications Medications Dose Route/Sig Max Daily Dose Days Date Category Dose Instructions Isosorbide Mononitrate ER (Isosorbide Mononitrate) 30 Mg Tabcr 15 Mg PO DAILY 02/19/17 Reported Percocet 5MG/325MG (Oxycodone/Acetaminophen) Tab 1-2 Tablets PO [id number] PRN 02/18/17 Reported PAIN Humalog Mix 75/25 (Insulin Human Lispro) 100 Units/ Inj 1 Dose SC UD 02/18/17 Reported INJECT 50 UNITS 30 MINUTES BEFORE BREAKFAST AND SUPPER Aspirin Ec (Aspirin) 81 Mg Tab 81 Mg PO DAILY 02/18/17 Reported Novolog Mix 70/30 (Insulin Aspart Prota 70%/Aspart 30%) Susp 1 Dose SC UD 02/18/17 Reported INJECT 40 UNITS WITH BREAKFAST AND 30 UNITS WITH THE EVENING MEAL Cozaar (Losartan Potassium) 25 Mg Tab 25 Mg PO DAILY 02/18/17 Reported Restoril (Temazepam) 15 Mg Cap 15 Mg PO HS 02/18/17 Reported Lipitor (Atorvastatin Calcium) 20 Mg Tab 20 Mg PO BID 02/18/17 Reported [place] 5MG/325MG (Acetaminophen/Hydrocodone Bitart) Tab 1-2 Tabs PO [id number] PRN 02/18/17 Reported PRN PAIN Current Inpatient Medications Current Inpatient Medications Medications (Trade) Dose Ordered Sig/[place] Route Start Time Stop Time Status Last Admin Dose Admin Acetaminophen (Tylenol Tab) 650 mg Q4H PRN PO 02/18/17 15:00 03/20/17 14:59 Al Hydrox/Mg Hydrox/Simethicone (Maalox Max Susp) 15 ml Q4H PRN PO 02/18/17 15:00 03/20/17 14:59 Magnesium Hydroxide (Milk Of Magnesia Susp) 30 ml Q6H PRN PO 02/18/17 15:00 03/20/17 14:59 Polyethylene (Miralax Powder Packet) 17 gm DAILY PRN PO 02/18/17 15:00 03/20/17 14:59 Ondansetron HCl (Zofran Inj) 4 mg Q6H PRN IV 02/18/17 15:00 03/20/17 14:59 Atorvastatin Calcium (Lipitor Tab) 20 mg BID PO 02/18/17 20:00 03/20/17 20:59 02/19/17 08:35 20 MG Acetaminophen/ Hydrocodone Bitart ([place] 5/325 Tab) 1-mild/ mod pain 2 -sev... Q4H PRN PO 02/18/17 15:00 03/04/17 14:59 02/18/17 22:30 2 TAB Losartan Potassium (coZAAR TAB) 25 mg DAILY PO 02/19/17 08:00 03/21/17 08:59 02/19/17 08:35 25 MG Temazepam (Restoril Cap) 15 mg HS PO 02/18/17 21:00 03/20/17 20:59 02/18/17 21:22 15 MG Isosorbide Mononitrate (Imdur Ext Rel Tab) 15 mg DAILY PO 02/19/17 08:00 03/21/17 07:59 02/19/17 08:34 15 MG Insulin Glargine (Lantus Solostar Pen) 13 unit Q12 SC 02/18/17 21:00 03/20/17 20:59 Future Hold 02/18/17 21:28 13 UNIT Insulin Aspart (novoLOG ASPART) SLIDING SCALE If C... ACHS SC 02/18/17 18:00 03/20/17 17:59 02/19/17 08:40 3 UNITS Glucose (Glucose 40% Gel) 15-30 GRAMS 15 GRAMS... UD PRN PO 02/18/17 15:15 03/20/17 15:14 Glucose (Glucose Chew Tab) 4-8 Tablets 4 Tabl... UD PRN PO 02/18/17 15:15 03/20/17 15:14 Dextrose (Dextrose 50% 50ML Syringe) 25-50ML OF 50% DW IV FOR... UD PRN IV 02/18/17 15:15 03/20/17 15:14 Glucagon (Glucagon Inj) 1 mg UD PRN SQ 02/18/17 15:15 03/20/17 15:14 Vancomycin HCl 1150 mg/Sodium Chloride 273 ml @ 125 mls/hr Q18H IV 02/19/17 08:00 03/01/17 07:59 02/19/17 09:37 125 MLS/HR Ampicillin Sodium/ Sulbactam Sodium 1500 mg/Sodium Chloride 104 ml @ 200 mls/hr Q6H IV 02/18/17 20:00 02/28/17 15:14 02/19/17 08:42 200 MLS/HR Vancomycin HCl (Consult) 1 ea UD PRN N/A 02/18/17 20:45 03/20/17 20:44 Morphine Sulfate (MoRPHine SULFATE INJ) 1 mg Q4H PRN IV 02/19/17 09:00 03/05/17 08:59 Morphine Sulfate (MoRPHine SULFATE INJ) 2 mg Q4H PRN IV 02/19/17 09:00 03/05/17 08:59 Review of Systems Constitutional: No fever, No chills, No sweats, No weakness, No fatigue Eyes: No worsening of vision ENT: No hearing loss Respiratory: No cough, No shortness of breath Cardiovascular: No chest pain Abdomen: No pain, No nausea, No vomiting, No diarrhea Musculoskeletal: + swelling (left hand, pain associated) Genitourinary - Male: No hematuria, No dysuria, No urinary frequency Integumentary: + new/changing skin lesions (drainage from around previous surgical site, jefry still in place. Erythema around site), No rash, No itch Physical Exam Date Time Temp Pulse Resp B/P (MAP) Pulse Ox O2 Delivery O2 Flow Rate FiO2 02/19/17 07:47 Room Air 02/19/17 07:03 36.4 68 18 139/85 (103) 98 Room Air 02/19/17 00:01 36.4 74 17 124/78 (93) 97 Room Air 02/19/17 00:00 Room Air 02/18/17 16:09 36.4 87 18 166/87 (113) 98 Room Air 02/18/17 15:30 36.6 73 16 138/86 98 02/18/17 15:07 73 16 138/86 98 Room Air 02/18/17 14:40 96 Room Air 02/18/17 13:54 81 16 132/84 96 Room Air 02/18/17 12:06 36.6 78 20 119/84 98 Room Air General Appearance: WD/WN, no apparent distress Head: normocephalic, atraumatic Eyes: normal inspection, sclerae normal ENT: hearing grossly normal Neck: supple, trachea midline Respiratory/Chest: chest non-tender, lungs clear, normal breath sounds, no respiratory distress, no accessory muscle use Cardiovascular: regular rate, rhythm, no murmur Abdomen/GI: normal bowel sounds, non tender, soft Back: normal inspection Extremities/Musculoskelatal: + pertinent finding (left hand with 3rd and 4th digit amputation, amputation site edematous, erythematous, draining yellow/ cloudy fluid, jefry in place) Neurologic/Psych: alert, normal mood/affect Skin: warm/dry, no rash, + pertinent finding Laboratory Results LEFT HAND MIN 3 VIEWS ROUTINE CLINICAL HISTORY: left hand pain infection COMPARISON: None. DISCUSSION: There are postsurgical changes of a fourth digit amputation at the level of the metacarpal phalangeal joint. There are postsurgical changes of a third digit amputation at the level of the proximal third metacarpal. There are overlying skin jefry present. No acute fractures are visualized. There is dorsal soft tissue swelling. Vascular calcifications are evident. Degenerative changes are present most pronounced at the level of the first metatarsal phalangeal joint. IMPRESSION: 1. Postsurgical changes 2. Soft tissue swelling 3. No acute fractures. Last 24 Hours Test 02/18/17 12:50 02/18/17 15:03 02/18/17 16:11 02/18/17 19:51 White Blood Count 4.71 K/uL Red Blood Count 4.87 M/uL Hemoglobin 12.9 g/dL Hematocrit 38.0 % Mean Corpuscular Volume 78.0 fL Mean Corpuscular Hemoglobin 26.5 pg Mean Corpuscular Hemoglobin Concent 33.9 g/dl Platelet Count 206 K/uL Mean Platelet Volume 8.8 fL Neutrophils (%) (Auto) 63.8 % Lymphocytes (%) (Auto) 25.5 % Monocytes (%) (Auto) 5.9 % Eosinophils (%) (Auto) 4.2 % Basophils (%) (Auto) 0.4 % Neutrophils # (Auto) 3.00 K/uL Lymphocytes # (Auto) 1.20 K/uL Monocytes # (Auto) 0.28 K/uL Eosinophils # (Auto) 0.20 K/uL Basophils # (Auto) 0.02 K/uL RDW Standard Deviation 37.5 fL RDW Coefficient of Variation 13.2 % Immature Granulocyte % (Auto) 0.2 % Immature Granulocyte # (Auto) 0.01 K/uL Erythrocyte Sedimentation Rate 30 mm/hr Sodium Level 134 mmol/L Potassium Level 4.6 mmol/L Chloride Level 99 mmol/L Carbon Dioxide Level 28 mmol/L Anion Gap 7.0 mmol/L Blood Urea Nitrogen 19 mg/dl Creatinine 1.30 mg/dl Est Creatinine Clear Calc Drug Dose 53.7 ml/min Estimated GFR () 64.5 Estimated GFR (Non- 55.7 BUN/Creatinine Ratio 14.7 Random Glucose 414 mg/dl Calcium Level 9.1 mg/dl C-Reactive Protein 0.41 mg/dl Beta-Hydroxybutyric Acid 0.82 mg/dL Hepatitis C Antibody Screen NEG Bedside Glucose 319 mg/dl 260 mg/dl 132 mg/dl Test 02/19/17 07:24 02/19/17 08:43 02/19/17 08:53 Bedside Glucose 200 mg/dl Sodium Level 137 mmol/L Potassium Level 3.9 mmol/L Chloride Level 103 mmol/L Carbon Dioxide Level 27 mmol/L Anion Gap 7.0 mmol/L Blood Urea Nitrogen 18 mg/dl Creatinine 0.84 mg/dl Est Creatinine Clear Calc Drug Dose 83.0 ml/min Estimated GFR () 103.5 Estimated GFR (Non- 89.3 BUN/Creatinine Ratio 21.2 Random Glucose 224 mg/dl Calcium Level 8.5 mg/dl Magnesium Level 2.1 mg/dl White Blood Count 4.19 K/uL Red Blood Count 4.62 M/uL Hemoglobin 12.2 g/dL Hematocrit 36.4 % Mean Corpuscular Volume 78.8 fL Mean Corpuscular Hemoglobin 26.4 pg Mean Corpuscular Hemoglobin Concent 33.5 g/dl RDW Standard Deviation 38.4 fL RDW Coefficient of Variation 13.5 % Platelet Count 167 K/uL Mean Platelet Volume 8.7 fL Estimated Average Glucose 367 mg/dl Hemoglobin A1c 14.4 % Assessment & Plan Patient with the left hand postoperative infection at the 3rd and 4th digit amputation site. The patient has had polymicrobial infection at this site previously, and most recently grew Enterococcus, MSSA, anaerobic bacteria, and yeast non Alexis albicans. The patient is currently on IV Unasyn and vancomycin and anticipating I and D this afternoon. Will add caspofungin as well due to multiple cultures growing yeast, non Alexis albicans. We will continue to follow an narrow antibiotic spectrum as a able. Please culture any surgical findings. Case reviewed and agree with above assessment.
[2017-02-19] MEDS ORDERED: CASPOFUNGIN INJ 70 MG in SODIUM CHLORIDE 0.9% 250ML 250 ML IV SCH (14:30)
[2017-02-19] MEDS ORDERED: PROPOFOL IV EMULSION 10 MG/ML 20 ML VIAL IV ONE (17:38)
[2017-02-19] MEDS ORDERED: FENTANYL CITRATE INJ 50 MCG/1 ML 2 ML VIAL ONE (17:38)
[2017-02-19] MEDS ORDERED: LIDOCAINE HCL 2% 2 ML VIAL (20MG/ML) ONE (17:38)
--- NOTE | 2017-02-19 17:38 | History & Physical Bridge Note ---
H&P Re-Evaluation Bridge Note: I have examined the patient, reviewed the History & Physical and in the interval since the performance of the History & Physical I have noted the following changes of clinical significance: No changes noted
[2017-02-19] MEDS ORDERED: ONDANSETRON INJ 2 MG/ML 2 ML VIAL ONE ×2 (17:39→18:04)
[2017-02-19] MEDS ORDERED: LACTATED RINGER'S 1000ML 1,000 ML IV PRN (17:42)
[2017-02-19] MEDS ORDERED: FENTANYL CITRATE INJ 50 MCG/1 ML 2 ML VIAL IV PRN (17:45)
[2017-02-19] MEDS ORDERED: ONDANSETRON INJ 2 MG/ML 2 ML VIAL IV PRN (17:45)
[2017-02-19] MEDS ORDERED: BUPIVACAINE 0.5 % 5 MG/1 ML MPF 30ML VIAL ONE (17:48)
[2017-02-19] MEDS ORDERED: BACITRACIN 50000 UNIT VIAL ONE (17:48)
[2017-02-19] MEDS ORDERED: METOCLOPRAMIDE HCL INJ 5 MG/ML 2 ML VIAL ONE (18:03)
[2017-02-19] MEDS ORDERED: SUCCINYLCHOLINE CHLORIDE 20 MG/ML 10 ML VIAL IV ONE (18:03)
[2017-02-19] MEDS ORDERED: EpHEDrine SULFATE INJ 50 MG/ML AMP ONE (18:19)
--- NOTE | 2017-02-19 19:11 | [facility] Post Operative Brief Note ---
Immediate Operative Summary Operative Date Feb 19, 2017. Pre-Operative Diagnosis Left Hand Infection Post-Operative Diagnosis Left Hand Infection Procedure(s) Performed Incision and Drainage Left Hand Application of Wound Vac Surgeon Dr. Ledezma Paper Hanger Surgeon(s) none Estimated Blood Loss 10ml Findings gross purulence Specimens For Culture: 1. Left Hand Infection - Aerobic, Anaerobic, Gram Stain, C+S - Routine Drains none Anesthesia gen Complication(s) None Disposition Surgical ICU
--- NOTE | 2017-02-19 19:42 | Anesthesiology Progress Note ---
Anesthesia Post Op Note Date & Time Feb 19, 2017 at 19:42 Vital Signs Pain Intensity: 0 Vital Signs Past 12 Hours Date Time Temp Pulse Resp B/P (MAP) Pulse Ox O2 Delivery O2 Flow Rate FiO2 02/19/17 19:40 82 16 113/63 100 Nasal Cannula 2 02/19/17 19:30 76 16 117/63 100 Mask 6 02/19/17 19:20 78 16 118/64 100 Mask 10 02/19/17 19:13 36.2 80 16 112/66 97 Mask 10 02/19/17 17:31 36.4 67 16 115/75 94 Room Air 02/19/17 16:00 96 Room Air 02/19/17 15:39 36.5 68 18 115/68 (84) 96 Room Air 02/19/17 07:47 Room Air Notes Mental Status: alert / awake / arousable, participated in evaluation Pt Amnestic to Procedure: Yes Nausea / Vomiting: adequately controlled Pain: adequately controlled Airway Patency, RR, SpO2: stable & adequate BP & HR: stable & adequate Hydration State: stable & adequate Anesthetic Complications: no major complications apparent Pt doing well.
[2017-02-19] MEDS: TEMAZEPAM 15 MG CAP PO SCH (22:00)
[2017-02-19] MEDS: VANCOMYCIN INJ 1,150 MG in SODIUM CHLORIDE 0.9% 250ML 250 ML IV SCH (22:07)
[2017-02-19] MEDS: INSULIN GLARGINE SOLOSTAR 100 UNITS/ML 3 ML PEN SC SCH (22:24)
--- NOTE | 2017-02-20 00:23 | OPERATIVE REPORT ---
DATE OF OPERATION: 02/19/2017 PREOPERATIVE DIAGNOSES: 1. Left hand infection. 2. Left hand open wound. POSTOPERATIVE DIAGNOSES: Same. PROCEDURES: 1. Left hand I&D of infection, skin, subcutaneous tissue and fascia. 2. Application of wound VAC. ANESTHESIA: General. SUPERVISOR CONTACT LENS: None. INDICATIONS: This is a gentleman with poorly controlled diabetes who presents with persistent wound infection status post ray amputation. The risks and benefits have been discussed including, but not limited to, risk of infection, nerve injury, stiffness, loss of motion, failure to improve, etc. The patient is agreeable and wishes to proceed. DESCRIPTION OF PROCEDURE: I removed the patient's previous jefry and the wound was inspected. There was evidence of gross purulence in the area where the metacarpal was removed. I performed excisional debridement of an area of 3 x 2 cm with scalpels, curettes, scissors and rongeurs. Cultures were taken. There is evidence of gross purulence and necrotic tissue in the area. This was debrided. I then copiously irrigated the area with 3 liters of bacitracin and impregnated normal saline. I placed a 4-0 nylon stitch in the most proximal aspect of the incision and I placed a VAC sponge into the wound. The sponge was then sealed over the wound with VAC sponge adherent. The VAC was then placed to 125 mm continuous suction. This did result in a low leak rate. The patient had a superficial blister over the radial styloid region. This was popped and debrided. I placed Adaptic over the area and a soft dressing. The patient was sent to the PACU in stable condition. Postoperative plan will be continue VAC changes. I would anticipate further surgical treatment at this point in time, will continue to monitor additional cultures. I attest to the content of the Intraoperative Record and any orders documented therein. Any exception s are noted below.
[2017-02-20] MEDS: AMPICILLIN/SULBACTAM SOD INJ 1,500 MG in SODIUM CHLORIDE 0.9% 100ML 100 ML IV SCH ×4 (01:32→20:05)
[2017-02-20 07:25] VITALS: BP 109/59; PULSE 80; TEMP 36.3; O2SAT 96
[2017-02-20] MEDS ORDERED: VANCOMYCIN TROUGH SCH ×2 (07:30→19:30)
[2017-02-20] MEDS: CASPOFUNGIN INJ 50 MG in SODIUM CHLORIDE 0.9% 250ML 250 ML IV SCH (07:39)
[2017-02-20] MEDS: ATORVASTATIN 20 MG TAB PO SCH ×2 (07:40→20:05)
[2017-02-20] MEDS: VANCOMYCIN INJ 1,150 MG in SODIUM CHLORIDE 0.9% 250ML 250 ML IV SCH ×2 (07:40→20:05)
[2017-02-20] MEDS: ISOSORBIDE MONONITRATE 30 MG TABCR PO SCH (07:40)
[2017-02-20] MEDS: LOSARTAN POTASSIUM 25 MG TAB PO SCH (07:41)
[2017-02-20 07:58] LABS: HEMATOCRIT 33.9 % (42-52); MEAN CELL VOLUME 79.2 fL (80-100); MEAN CORPUSCULAR HEMOGLOBIN 25.9 pg (25-34); MEAN CORPUSCULAR HGB CONC 32.7 g/dl (32-36); MEAN PLATELET VOLUME 8.6 fL (7.4-10.4); PLATELET COUNT 160 K/uL (130-400); RED BLOOD COUNT 4.28 M/uL (4.7-6.1); WHITE BLOOD COUNT 4.54 K/uL (4.8-10.8)
[2017-02-20 08:00] VITALS: O2SAT 6
[2017-02-20 08:31] LABS: BUN/CREATININE RATIO 17.4 (10-20); CREATININE 0.84 mg/dl (0.60-1.40); POTASSIUM 3.6 mmol/L (3.5-5.1)
[2017-02-20 08:46] LABS: CALCIUM 8.1 mg/dl (8.5-10.1)
--- NOTE | 2017-02-20 08:49 | Anesthesiology Progress Note ---
Anesthesia Post Op Note Date & Time Feb 20, 2017 at 08:48 Vital Signs Vital Signs Past 12 Hours Date Time Temp Pulse Resp B/P (MAP) Pulse Ox O2 Delivery O2 Flow Rate FiO2 02/20/17 08:00 6 Room Air 02/20/17 07:25 36.3 80 18 109/59 (76) 96 Room Air 02/19/17 23:26 36.1 76 18 106/56 (73) 99 Room Air 02/19/17 23:20 Room Air 02/19/17 22:00 36.4 83 18 106/57 (73) 98 Nasal Cannula 2.0 02/19/17 21:30 36.4 79 18 99/54 (69) 99 Nasal Cannula 2.0 02/19/17 21:00 36.5 82 18 112/55 (74) 98 Nasal Cannula 2.0 Notes Mental Status: alert / awake / arousable, participated in evaluation Pt Amnestic to Procedure: Yes Nausea / Vomiting: adequately controlled Pain: adequately controlled Airway Patency, RR, SpO2: stable & adequate BP & HR: stable & adequate Hydration State: stable & adequate Anesthetic Complications: no major complications apparent
[2017-02-20] MEDS: INSULIN GLARGINE SOLOSTAR 100 UNITS/ML 3 ML PEN SC SCH ×2 (09:02→22:02)
[2017-02-20] MEDS: INSULIN ASPART 100 UNITS/ML 3 ML PEN SC SCH ×4 (09:03→22:02)
[2017-02-20] MEDS: HYDROCODONE/ACETAMOPHEN 5/325MG TAB PO PRN ×2 (09:32→16:33)
--- NOTE | 2017-02-20 10:09 | Infectious Disease Progress Nt ---
Progress Note Date of Service Feb 20, 2017. Subjective Pt evaluation today including: conversation w/ patient, physical exam, chart review, lab review, review of studies, review of inpatient medication list Patient is feeling well this morning. He states that his left hand is very sore today. He is s/p I & D with debridement of the left hand with application of wound vac. The operative record was reviewed. Noted evidence of gross purulence where the previous metacarpal was removed. Cultures were taken and are pending. The patient continues on IV Unasyn, Vancomycin, and Caspofungin. He denies N/V/ D. WBC count today was 4.54. All Other Systems: Reviewed and Negative Medications Current Inpatient Medications Medications (Trade) Dose Ordered Sig/Quinton Route Start Time Stop Time Status Last Admin Dose Admin Acetaminophen (Tylenol Tab) 650 mg Q4H PRN PO 02/18/17 15:00 03/20/17 14:59 Al Hydrox/Mg Hydrox/Simethicone (Maalox Max Susp) 15 ml Q4H PRN PO 02/18/17 15:00 03/20/17 14:59 Magnesium Hydroxide (Milk Of Magnesia Susp) 30 ml Q6H PRN PO 02/18/17 15:00 03/20/17 14:59 Polyethylene (Miralax Powder Packet) 17 gm DAILY PRN PO 02/18/17 15:00 03/20/17 14:59 Ondansetron HCl (Zofran Inj) 4 mg Q6H PRN IV 02/18/17 15:00 03/20/17 14:59 02/19/17 16:04 4 MG Atorvastatin Calcium (Lipitor Tab) 20 mg BID PO 02/18/17 20:00 03/20/17 20:59 02/20/17 07:40 20 MG Acetaminophen/ Hydrocodone Bitart ([place] 5/325 Tab) 1-mild/ mod pain 2 -sev... Q4H PRN PO 02/18/17 15:00 03/04/17 14:59 02/20/17 09:32 1 TAB Losartan Potassium (coZAAR TAB) 25 mg DAILY PO 02/19/17 08:00 03/21/17 08:59 02/20/17 07:41 25 MG Temazepam (Restoril Cap) 15 mg HS PO 02/18/17 21:00 03/20/17 20:59 02/18/17 21:22 15 MG Isosorbide Mononitrate (Imdur Ext Rel Tab) 15 mg DAILY PO 02/19/17 08:00 03/21/17 07:59 02/20/17 07:40 15 MG Insulin Glargine (Lantus Solostar Pen) 13 unit Q12 SC 02/18/17 21:00 03/20/17 20:59 Future hold 02/20/17 09:02 13 UNIT Insulin Aspart (novoLOG ASPART) SLIDING SCALE If C... ACHS SC 02/18/17 18:00 03/20/17 17:59 02/20/17 09:03 5 UNITS Glucose (Glucose 40% Gel) 15-30 GRAMS 15 GRAMS... UD PRN PO 02/18/17 15:15 03/20/17 15:14 Glucose (Glucose Chew Tab) 4-8 Tablets 4 Tabl... UD PRN PO 02/18/17 15:15 03/20/17 15:14 Dextrose (Dextrose 50% 50ML Syringe) 25-50ML OF 50% DW IV FOR... UD PRN IV 02/18/17 15:15 03/20/17 15:14 Glucagon (Glucagon Inj) 1 mg UD PRN SQ 02/18/17 15:15 03/20/17 15:14 Ampicillin Sodium/ Sulbactam Sodium 1500 mg/Sodium Chloride 104 ml @ 200 mls/hr Q6H IV 02/18/17 20:00 02/28/17 15:14 02/20/17 09:55 200 MLS/HR Vancomycin HCl (Consult) 1 ea UD PRN N/A 02/18/17 20:45 03/20/17 20:44 Morphine Sulfate (MoRPHine SULFATE INJ) 1 mg Q4H PRN IV 02/19/17 09:00 03/05/17 08:59 Morphine Sulfate (MoRPHine SULFATE INJ) 2 mg Q4H PRN IV 02/19/17 09:00 03/05/17 08:59 Vancomycin HCl 1150 mg/Sodium Chloride 273 ml @ 125 mls/hr Q12H IV 02/19/17 20:00 03/01/17 19:59 02/20/17 07:40 125 MLS/HR Caspofungin 50 mg/ Sodium Chloride 260 ml @ 250 mls/hr DAILY@0800 IV 02/20/17 08:00 03/01/17 07:59 02/20/17 07:39 250 MLS/HR Objective Vital Signs Date Time Temp Pulse Resp B/P (MAP) Pulse Ox O2 Delivery O2 Flow Rate FiO2 02/20/17 08:00 6 Room Air 02/20/17 07:25 36.3 80 18 109/59 (76) 96 Room Air 02/19/17 23:26 36.1 76 18 106/56 (73) 99 Room Air 02/19/17 23:20 Room Air 02/19/17 22:00 36.4 83 18 106/57 (73) 98 Nasal Cannula 2.0 02/19/17 21:30 36.4 79 18 99/54 (69) 99 Nasal Cannula 2.0 02/19/17 21:00 36.5 82 18 112/55 (74) 98 Nasal Cannula 2.0 02/19/17 20:45 36.6 80 16 124/65 (84) 100 Nasal Cannula 2.0 02/19/17 20:30 36.6 79 18 116/62 (80) 100 Nasal Cannula 2.0 02/19/17 20:15 36.5 80 18 115/59 (77) 100 Room Air 2.0 02/19/17 19:50 36.4 79 16 113/64 100 Nasal Cannula 2 02/19/17 19:40 82 16 113/63 100 Nasal Cannula 2 02/19/17 19:30 76 16 117/63 100 Mask 6 02/19/17 19:20 78 16 118/64 100 Mask 10 02/19/17 19:13 36.2 80 16 112/66 97 Mask 10 02/19/17 17:31 36.4 67 16 115/75 94 Room Air 02/19/17 16:00 96 Room Air 02/19/17 15:39 36.5 68 18 115/68 (84) 96 Room Air Physical Exam General Appearance: WD/WN, no apparent distress Eyes: normal inspection, sclerae normal ENT: hearing grossly normal Neck: supple, trachea midline Respiratory/Chest: no respiratory distress, no accessory muscle use Cardiovascular: + pertinent finding (regular rate) Extremities: + pertinent finding (left hand with wound vac in place. Surrounding erythema.) Neurologic/Psychiatric: alert, normal mood/affect Skin: normal color, warm/dry, no rash Laboratory Results RUN DATE: 02/20/17 [facility] LAB PAGE 1 RUN TIME: 956 Specimen Inquiry PATIENT: WHITNEY OCONNOR LOC: [id number] U # : [id number] AGE/SX: 71/M ROOM: [facility] REG : 02/18/[address]: Alexey Barcenas M.D : 1945 BED: 2 DIS : STATUS: ADM IN TLOC: SPEC #: [id number] KRZYSZTOF: 02/19/17 STATUS: RES REQ #: [id number] RECD: 02/19/[address]: Alexey Barcenas M.D. SOURCE: DRAIN-DEEP ENTR: 02/19/[address]: Joo Ledezma MD SPDESC: HAND LEFT No Doctor, Jennifer. Potter D.O. ORDERED: AER/RENAE CULTSMR Procedure Result Verified Site GRAM STAIN Final 02/20/17-956 RESULT FEW WBCs SEEN RARE EPITHELIAL CELLS NO ORGANISMS SEEN OR AER/RENAE CULT Results Pending Last 24 Hours Test 02/19/17 11:27 02/19/17 16:06 02/19/17 19:20 02/19/17 22:05 Bedside Glucose 196 mg/dl 171 mg/dl 176 mg/dl 217 mg/dl Test 02/20/17 07:30 02/20/17 07:32 White Blood Count 4.54 K/uL Red Blood Count 4.28 M/uL Hemoglobin 11.1 g/dL Hematocrit 33.9 % Mean Corpuscular Volume 79.2 fL Mean Corpuscular Hemoglobin 25.9 pg Mean Corpuscular Hemoglobin Concent 32.7 g/dl RDW Standard Deviation 38.9 fL RDW Coefficient of Variation 13.6 % Platelet Count 160 K/uL Mean Platelet Volume 8.6 fL Sodium Level 140 mmol/L Potassium Level 3.6 mmol/L Chloride Level 105 mmol/L Carbon Dioxide Level 29 mmol/L Anion Gap 6.0 mmol/L Blood Urea Nitrogen 15 mg/dl Creatinine 0.84 mg/dl Est Creatinine Clear Calc Drug Dose 83.0 ml/min Estimated GFR () 103.5 Estimated GFR (Non- 89.3 BUN/Creatinine Ratio 17.4 Random Glucose 117 mg/dl Calcium Level 8.1 mg/dl Magnesium Level 2.0 mg/dl Vancomycin Level Trough 14.9 mcg/ml Bedside Glucose 119 mg/dl Assessment and Plan Patient with the left hand postoperative infection at the 3rd and 4th digit amputation site now s/p I & D with debridement of surrounding tissues. The patient has had polymicrobial infection at this site previously, and most recently grew Enterococcus, MSSA, anaerobic bacteria, and yeast non Amelia albicans. The patient is currently on IV Unasyn, Caspofungin, and vancomycin. Will continue broad spectrum coverage pending cultures. Seems very likely that patient will require at least a few days of IV therapy and may require home IV therapy on d/c. We will follow. Case reviewed and agree with above assesment.
--- NOTE | 2017-02-20 10:55 | Pharmacy Progress Note ---
Pharmacy Abx Dose Short Note Date of Service Feb 20, 2017. Assessment & Plan Assessment * 71 year old male receiving Vancomycin/Unasyn/Caspo IV for treatment of L hand infection at 3rd and 4th digit amputation site. Per ID, patient had polymicrobial infection at this site which recently great enterococcus, MSSA, anaerobic bacteria and yeast (not alexis albicans). * Per ID continue broad spectrum at this time. * Day # 3 of antimicrobial therapy. Plan Vancomycin * Trough level of 14.9 mcg/mL is therapeutic. * Continue dose of 1150 mg IV every 12 hours. * Goal trough level for cellulitis is ~15 mcg/mL but given infection s/p amputation and site, would recommend keeping on the higher side. * Renal function stable. A follow up trough level will be ordered for: 02/23/17 @ 0730. * Check sooner if renal function changes. Pharmacy will continue to follow and will adjust dose/frequency as necessary. Thank you.
[2017-02-20 11:33] VITALS: Ht 175.3 cm; Wt 74.0 kg
--- NOTE | 2017-02-20 11:46 | Progress Note ---
Subjective Date of Service: Feb 20, 2017. Subjective Pt evaluation today including: conversation w/ patient, physical exam, chart review, lab review, review of studies, conversation w/ rn lactation consultant, review of inpatient medication list Out of bed to the rest known with some help, generally feeling okay, left hand S /P I&D of the wound yesterday, No other complaint Problem List Medical Problems: (1) Diabetes Status: Chronic (2) Hyperglycemia Status: Acute (3) Post op infection Status: Acute Review of Systems Constitutional: No fever, No chills, No sweats, No weight loss, No weakness, No fatigue, No problem reported Eyes: No worsening of vision, No eye pain, No redness, No discharge, No diplopia ENT: No hearing loss, No unusual epistaxis, No nasal symptoms, No sore throat, No tinnitus, No dental problems, No trouble swallowing Respiratory: No cough, No sputum, No wheezing, No shortness of breath, No dyspnea on exertion, No dyspnea at rest, No hemoptysis Cardiac: No chest pain, No orthopnea, No PND, No edema, No claudication, No palpitations Abdomen: No pain, No nausea, No vomiting, No diarrhea, No constipation Musculoskeletal: + joint pain (see history of present illness), No muscle pain , No swelling, No calf pain Male : No dysuria, No urinary frequency, No incontinence, No nocturia more than once/night, No slowing stream, No hematuria Neurologic: No memory loss, No paralysis, No weakness, No numbness/tingling, No vertigo, No balance problems Psychiatric: No depression symptoms, No anhedonism, No anxiety, No insomnia, No substance abuse Heme: No abnormal bleeding/bruising, No clotting problems, No swollen lymph nodes, No night sweats Endo: No fatigue, No excessive thirst, No excessive urination Skin: No rash, No itch, No new/changing skin lesions, No color change, No bleeding Objective Vital Signs Date Time Temp Pulse Resp B/P (MAP) Pulse Ox O2 Delivery O2 Flow Rate FiO2 02/20/17 08:00 6 Room Air 02/20/17 07:25 36.3 80 18 109/59 (76) 96 Room Air 02/19/17 23:26 36.1 76 18 106/56 (73) 99 Room Air 02/19/17 23:20 Room Air 02/19/17 22:00 36.4 83 18 106/57 (73) 98 Nasal Cannula 2.0 02/19/17 21:30 36.4 79 18 99/54 (69) 99 Nasal Cannula 2.0 02/19/17 21:00 36.5 82 18 112/55 (74) 98 Nasal Cannula 2.0 02/19/17 20:45 36.6 80 16 124/65 (84) 100 Nasal Cannula 2.0 02/19/17 20:30 36.6 79 18 116/62 (80) 100 Nasal Cannula 2.0 02/19/17 20:15 36.5 80 18 115/59 (77) 100 Room Air 2.0 02/19/17 19:50 36.4 79 16 113/64 100 Nasal Cannula 2 02/19/17 19:40 82 16 113/63 100 Nasal Cannula 2 02/19/17 19:30 76 16 117/63 100 Mask 6 02/19/17 19:20 78 16 118/64 100 Mask 10 02/19/17 19:13 36.2 80 16 112/66 97 Mask 10 02/19/17 17:31 36.4 67 16 115/75 94 Room Air 02/19/17 16:00 96 Room Air 02/19/17 15:39 36.5 68 18 115/68 (84) 96 Room Air Physical Exam General Appearance: WD/WN, no apparent distress, + thin Eyes: normal inspection, PERRL, EOMI, sclerae normal ENT: normal ENT inspection, hearing grossly normal, pharynx normal Neck: supple, no adenopathy, thyroid normal, no JVD, no carotid bruits, trachea midline Respiratory/Chest: chest non-tender, lungs clear, normal breath sounds, no respiratory distress, no accessory muscle use Cardiovascular: regular rate, rhythm, no edema, no gallop, no JVD, no murmur Abdomen: normal bowel sounds, non tender, soft, no organomegaly, no pulsatile mass Extremities: no pedal edema, no calf tenderness, normal capillary refill, pelvis stable, + pertinent finding (left hand S/P I&D local in dressing) Neurologic/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 II-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 nml as tested, no motor/sensory deficits, alert, normal mood/affect, oriented x 3, + abnormal cerebellar tests Skin: normal color, warm/dry, no rash Lymphatic: no adenopathy Laboratory Results Last 24 Hours Test 02/19/17 16:06 02/19/17 19:20 02/19/17 22:05 02/20/17 07:30 Bedside Glucose 171 mg/dl 176 mg/dl 217 mg/dl White Blood Count 4.54 K/uL Red Blood Count 4.28 M/uL Hemoglobin 11.1 g/dL Hematocrit 33.9 % Mean Corpuscular Volume 79.2 fL Mean Corpuscular Hemoglobin 25.9 pg Mean Corpuscular Hemoglobin Concent 32.7 g/dl RDW Standard Deviation 38.9 fL RDW Coefficient of Variation 13.6 % Platelet Count 160 K/uL Mean Platelet Volume 8.6 fL Sodium Level 140 mmol/L Potassium Level 3.6 mmol/L Chloride Level 105 mmol/L Carbon Dioxide Level 29 mmol/L Anion Gap 6.0 mmol/L Blood Urea Nitrogen 15 mg/dl Creatinine 0.84 mg/dl Est Creatinine Clear Calc Drug Dose 83.0 ml/min Estimated GFR () 103.5 Estimated GFR (Non- 89.3 BUN/Creatinine Ratio 17.4 Random Glucose 117 mg/dl Calcium Level 8.1 mg/dl Magnesium Level 2.0 mg/dl Vancomycin Level Trough 14.9 mcg/ml Test 02/20/17 07:32 Bedside Glucose 119 mg/dl Assessment and Plan 71 y/o male on 02/18/2017 with L Hand Cellulitis 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 PMHx of T2DM and HTN who presents to the ED L Hand Cellulitis S/P 3rd-4th Finger Amputation on 01/25 S/P I&D on 03/01/2017 - Continue Unasyn 1.5 g IV Q6H caspofungin and Vancomycin - Surgeon and infectious disease on the case - Possible need residential IV antibiotic, picc line consent and requested - Orthopedic and infectious disease input appreciated Uncontrolled T2DM: Likely due to medicine noncompliant, patient did report he do not using insulin at home Blood glucose getting better today, which is possible from the tighten of the insulin sliding scale CF - A1c - 14.4 - Hold home 70/30 and 75/25 - recommend D/Cing this regimen - patient report inconvenience - question compliance -- Reporting a sliding scale with each - would recommend against these formulations due to difficulty with efficacy and peak times - Lantus 13 units BID and SSI, increase sliding scale correction factor, request inclusion paraeducator to talk more -- Received Lantus 6 units x 1 dose this AM while NPO - Recommend revised insulin regimen that promotes compliance and ease at D/C -- Would recommend a 1-2 times a day Lantus with either set meal time coverage - will assess insulin needs in hospital and develop a plan - Lipitor 20 mg BID - reports no H/O HLD but given due to DM HTN: Intermittent CP: No chest pain The above condition stable DVT Prophylaxis: BERTA/SCDs - Avoid chemical prophylaxis with wash-out/debridement Code Status: FULL RESUSCITATION Disposition: - Wash-out 02/19 per orthopedics was done - Adjust insulin regimen Continued [facility] stay due to: multiple IV medications needed Discharge planning: home
--- NOTE | 2017-02-20 15:28 | Orthopedic Progress Note ---
Orthopedic Progress Note Date of Service Feb 20, 2017. Subjective Reports: feeling well, pain controlled w PO medications, Denies: complaints Objective Wound vac on and functioning on left hand. No overt erythema. No drainage in collection unit. Date Time Temp Pulse Resp B/P (MAP) Pulse Ox O2 Delivery O2 Flow Rate FiO2 02/20/17 08:00 6 Room Air 02/20/17 07:25 36.3 80 18 109/59 (76) 96 Room Air 02/19/17 23:26 36.1 76 18 106/56 (73) 99 Room Air 02/19/17 23:20 Room Air 02/19/17 22:00 36.4 83 18 106/57 (73) 98 Nasal Cannula 2.0 02/19/17 21:30 36.4 79 18 99/54 (69) 99 Nasal Cannula 2.0 02/19/17 21:00 36.5 82 18 112/55 (74) 98 Nasal Cannula 2.0 02/19/17 20:45 36.6 80 16 124/65 (84) 100 Nasal Cannula 2.0 02/19/17 20:30 36.6 79 18 116/62 (80) 100 Nasal Cannula 2.0 02/19/17 20:15 36.5 80 18 115/59 (77) 100 Room Air 2.0 02/19/17 19:50 36.4 79 16 113/64 100 Nasal Cannula 2 02/19/17 19:40 82 16 113/63 100 Nasal Cannula 2 02/19/17 19:30 76 16 117/63 100 Mask 6 02/19/17 19:20 78 16 118/64 100 Mask 10 02/19/17 19:13 36.2 80 16 112/66 97 Mask 10 02/19/17 17:31 36.4 67 16 115/75 94 Room Air 02/19/17 16:00 96 Room Air 02/19/17 15:39 36.5 68 18 115/68 (84) 96 Room Air Laboratory Results 24 Hours: Test 02/20/17 07:30 Hematocrit 33.9 % Hemoglobin 11.1 g/dL Assessment & Plan Assessment: POD 1 s/p I&D Left hand. Plan: Continue IV antibx Picc line in. Wound Vac on and functioning. Discussed case with Ana Maria Christy. Will need to know when Dr Ledezma wants vac changed. Possible need for further washout in the future. Inhouse Planning Pain Management: Melvin, Morphine
[2017-02-20 15:54] VITALS: BP 127/75; PULSE 78; TEMP 36.6; O2SAT 96
[2017-02-20 16:00] VITALS: O2SAT 96
--- NOTE | 2017-02-20 16:45 | PROGRESS NOTE ---
DATE: 02/20/2017 SUBJECTIVE: Clive is doing well. He complains of appropriate amount of pain. Denies any other complaints. OBJECTIVE: LEFT HAND EXAM: He has no erythema. VAC is clean, dry and intact and is functioning at 125 continuous suction. He can flex and extend the digits. He has no evidence of septic joint and negative Knavel signs. ASSESSMENT: Postop day 1 incision and drainage of left hand diabetic infection with application of VAC. PLAN: At this point, will continue IV antibiotics as per infectious disease. I would not anticipate any further surgical treatment. I would recommend a VAC change by wound care on Saturday and VAC changes as they feel necessary. Long-term, I would anticipate the VAC for a period of 1-3 weeks until the wound heals, or as directed by wound care.
[2017-02-20] MEDS: TEMAZEPAM 15 MG CAP PO SCH (22:05)
[2017-02-21 00:52] VITALS: BP 92/54; PULSE 76; TEMP 36.8; O2SAT 97
[2017-02-21] MEDS: AMPICILLIN/SULBACTAM SOD INJ 1,500 MG in SODIUM CHLORIDE 0.9% 100ML 100 ML IV SCH ×4 (01:51→20:34)
[2017-02-21] MEDS: HYDROCODONE/ACETAMOPHEN 5/325MG TAB PO PRN ×2 (02:24→12:48)
[2017-02-21 06:04] LABS: HEMATOCRIT 32.1 % (42-52); MEAN CELL VOLUME 80.7 fL (80-100); MEAN CORPUSCULAR HEMOGLOBIN 26.9 pg (25-34); MEAN CORPUSCULAR HGB CONC 33.3 g/dl (32-36); MEAN PLATELET VOLUME 8.5 fL (7.4-10.4); PLATELET COUNT 135 K/uL (130-400); RED BLOOD COUNT 3.98 M/uL (4.7-6.1); WHITE BLOOD COUNT 3.81 K/uL (4.8-10.8)
[2017-02-21 06:41] LABS: BUN/CREATININE RATIO 18.6 (10-20); CREATININE 0.85 mg/dl (0.60-1.40)
--- NOTE | 2017-02-21 07:23 | Consultant Recommendations ---
Registered Nurses Recommendations Date of Service Feb 21, 2017. Registered Nurses Recommendations follow up with dr smith 10-14 days after discharge. please call for appt at [phone] keep left hand elevated. move the fingers in and out. keep VAC in place.
--- NOTE | 2017-02-21 07:39 | PROGRESS NOTE ---
DATE: 02/21/2017 DATE: 02/21/2017. SUBJECTIVE: Clive was seen at the bedside. He states, "he is ready to go home." He has no complaints of fever or chills. OBJECTIVE: LEFT HAND EXAMINATION: Left hand shows intact VAC. He has no evidence of erythema. He has no lymphadenopathy. He has very minimal swelling in the hand. He has negative Kanavel's sign. He can flex and extend the remaining digits. VAC is intact and set at 125 continuous. ASSESSMENT: Postop day 2 incision and drainage left hand with application of VAC for diabetic hand infection. PLAN: At this point in time, he is stable from a surgical standpoint. I do not anticipate any further surgical treatment. Recommendation is to change the VAC on Saturday by wound care. I would continue the VAC until interval healing occurs. Continue antibiotics as per infectious disease. Upon discharge, he should follow up with me in the office in 10-14 days. I discussed with him my recommendation for tight glycemic control. We will sign off. Please call if there are any further questions.
[2017-02-21 08:01] VITALS: BP 136/77; PULSE 66; TEMP 37; O2SAT 97
[2017-02-21] MEDS: ATORVASTATIN 20 MG TAB PO SCH ×2 (08:21→20:39)
[2017-02-21] MEDS: ISOSORBIDE MONONITRATE 30 MG TABCR PO SCH (08:21)
[2017-02-21] MEDS: LOSARTAN POTASSIUM 25 MG TAB PO SCH (08:21)
[2017-02-21] MEDS: VANCOMYCIN INJ 1,150 MG in SODIUM CHLORIDE 0.9% 250ML 250 ML IV SCH ×2 (08:26→20:34)
[2017-02-21] MEDS: INSULIN ASPART 100 UNITS/ML 3 ML PEN SC SCH ×4 (09:08→21:55)
[2017-02-21] MEDS: INSULIN GLARGINE SOLOSTAR 100 UNITS/ML 3 ML PEN SC SCH ×2 (09:08→21:55)
[2017-02-21] MEDS: CASPOFUNGIN INJ 50 MG in SODIUM CHLORIDE 0.9% 250ML 250 ML IV SCH (09:20)
--- NOTE | 2017-02-21 11:34 | Infectious Disease Progress Nt ---
Progress Note Date of Service Feb 21, 2017. Subjective Pt evaluation today including: conversation w/ patient, physical exam, chart review, lab review, review of studies, review of inpatient medication list Patient is feeling much better today. He states that he still has tenderness in his left hand at the operative site, but this is improving. His white blood cell count today was 3.81. His creatinine was 0.85. His surgical culture is growing coag-negative staph. He continues on IV caspofungin, vancomycin, and Unasyn. He continues to have wound VAC in place. The patient states that he would like follow-up appointments to be discussed with his daughter Amparo, and her phone number is [phone]. All Other Systems: Reviewed and Negative Medications Current Inpatient Medications Medications (Trade) Dose Ordered Sig/Quinton Route Start Time Stop Time Status Last Admin Dose Admin Acetaminophen (Tylenol Tab) 650 mg Q4H PRN PO 02/18/17 15:00 03/20/17 14:59 Al Hydrox/Mg Hydrox/Simethicone (Maalox Max Susp) 15 ml Q4H PRN PO 02/18/17 15:00 03/20/17 14:59 Magnesium Hydroxide (Milk Of Magnesia Susp) 30 ml Q6H PRN PO 02/18/17 15:00 03/20/17 14:59 Polyethylene (Miralax Powder Packet) 17 gm DAILY PRN PO 02/18/17 15:00 03/20/17 14:59 Ondansetron HCl (Zofran Inj) 4 mg Q6H PRN IV 02/18/17 15:00 03/20/17 14:59 02/19/17 16:04 4 MG Atorvastatin Calcium (Lipitor Tab) 20 mg BID PO 02/18/17 20:00 03/20/17 20:59 02/21/17 08:21 20 MG Acetaminophen/ Hydrocodone Bitart ([place] 5/325 Tab) 1-mild/ mod pain 2 -sev... Q4H PRN PO 02/18/17 15:00 03/04/17 14:59 02/21/17 12:48 1 TAB Losartan Potassium (coZAAR TAB) 25 mg DAILY PO 02/19/17 08:00 03/21/17 08:59 02/21/17 08:21 25 MG Temazepam (Restoril Cap) 15 mg HS PO 02/18/17 21:00 03/20/17 20:59 02/20/17 22:05 15 MG Isosorbide Mononitrate (Imdur Ext Rel Tab) 15 mg DAILY PO 02/19/17 08:00 03/21/17 07:59 02/21/17 08:21 15 MG Insulin Glargine (Lantus Solostar Pen) 13 unit Q12 SC 02/18/17 21:00 03/20/17 20:59 Future hold 02/21/17 09:08 13 UNIT Insulin Aspart (novoLOG ASPART) SLIDING SCALE If C... ACHS SC 02/18/17 18:00 03/20/17 17:59 02/21/17 12:45 5 UNITS Glucose (Glucose 40% Gel) 15-30 GRAMS 15 GRAMS... UD PRN PO 02/18/17 15:15 03/20/17 15:14 Glucose (Glucose Chew Tab) 4-8 Tablets 4 Tabl... UD PRN PO 02/18/17 15:15 03/20/17 15:14 Dextrose (Dextrose 50% 50ML Syringe) 25-50ML OF 50% DW IV FOR... UD PRN IV 02/18/17 15:15 03/20/17 15:14 Glucagon (Glucagon Inj) 1 mg UD PRN SQ 02/18/17 15:15 03/20/17 15:14 Ampicillin Sodium/ Sulbactam Sodium 1500 mg/Sodium Chloride 104 ml @ 200 mls/hr Q6H IV 02/18/17 20:00 02/28/17 15:14 02/21/17 13:47 200 MLS/HR Vancomycin HCl (Consult) 1 ea UD PRN N/A 02/18/17 20:45 03/20/17 20:44 Morphine Sulfate (MoRPHine SULFATE INJ) 1 mg Q4H PRN IV 02/19/17 09:00 03/05/17 08:59 Morphine Sulfate (MoRPHine SULFATE INJ) 2 mg Q4H PRN IV 02/19/17 09:00 03/05/17 08:59 Vancomycin HCl 1150 mg/Sodium Chloride 273 ml @ 125 mls/hr Q12H IV 02/19/17 20:00 03/01/17 19:59 02/21/17 08:26 125 MLS/HR Caspofungin 50 mg/ Sodium Chloride 260 ml @ 250 mls/hr DAILY@0800 IV 02/20/17 08:00 03/01/17 07:59 02/21/17 09:20 250 MLS/HR Heparin Sodium (Porcine) (Heparin 10 Unit/ ml 5 ml Flush) 5 ml PRN PRN FLUSH 02/20/17 15:30 03/22/17 15:29 02/21/17 11:02 5 ML Objective Vital Signs Date Time Temp Pulse Resp B/P (MAP) Pulse Ox O2 Delivery O2 Flow Rate FiO2 02/21/17 08:01 37.0 66 18 136/77 (96) 97 Room Air 02/21/17 00:52 36.8 76 16 92/54 (67) 97 02/20/17 23:59 Room Air 02/20/17 16:00 96 Room Air 02/20/17 15:54 36.6 78 18 127/75 (92) 96 Room Air Physical Exam General Appearance: WD/WN, no apparent distress Eyes: normal inspection, sclerae normal ENT: hearing grossly normal Neck: supple, trachea midline Respiratory/Chest: no respiratory distress, no accessory muscle use Cardiovascular: regular rate, rhythm Extremities: + pertinent finding (Wound VAC in place over left hand operative site) Neurologic/Psychiatric: alert, normal mood/affect Skin: normal color, warm/dry, no rash, + pertinent finding (Erythema surrounding operative site has decreased substantially) Laboratory Results RUN DATE: 02/21/17 [facility] PAGE 1 RUN TIME: 2350 Specimen Inquiry PATIENT: WHITNEY OCONNOR LOC: [id number] U # : [id number] AGE/SX: 71/M ROOM: [facility] REG : 02/18/[address]: Alexey Barcenas M.D : 1945 BED: 2 DIS : STATUS: ADM IN TLOC: SPEC #: [id number] KRZYSZTOF: 02/19/17 STATUS: RES REQ #: [id number] RECD: 02/19/[address]: Alexey Barcenas M.D. SOURCE: DRAIN-DEEP ENTR: 02/19/[address]: Joo Ledezma MD SPDES: HAND LEFT No Doctor, Jennifer. Tariq, D.OPerri ORDERED: AER/RENAE CULTSMR Procedure Result Verified Site GRAM STAIN Final 02/20/17-34 RESULT FEW WBCs SEEN RARE EPITHELIAL CELLS NO ORGANISMS SEEN OR AER/RENAE CULT Preliminary 02/21/17-1259 Organism 1 COAG NEG STAPHYLOCOCCUS QUANITY RARE SENS NO SENSITIVITY TO FOLLOW Last 24 Hours Test 02/20/17 11:31 02/20/17 16:42 02/20/17 19:51 02/21/17 05:50 Bedside Glucose 154 mg/dl 151 mg/dl 188 mg/dl White Blood Count 3.81 K/uL Red Blood Count 3.98 M/uL Hemoglobin 10.7 g/dL Hematocrit 32.1 % Mean Corpuscular Volume 80.7 fL Mean Corpuscular Hemoglobin 26.9 pg Mean Corpuscular Hemoglobin Concent 33.3 g/dl RDW Standard Deviation 40.1 fL RDW Coefficient of Variation 13.7 % Platelet Count 135 K/uL Mean Platelet Volume 8.5 fL Sodium Level 141 mmol/L Potassium Level 4.0 mmol/L Chloride Level 107 mmol/L Carbon Dioxide Level 27 mmol/L Anion Gap 7.0 mmol/L Blood Urea Nitrogen 16 mg/dl Creatinine 0.85 mg/dl Est Creatinine Clear Calc Drug Dose 82.1 ml/min Estimated GFR () 103.0 Estimated GFR (Non- 88.9 BUN/Creatinine Ratio 18.6 Random Glucose 167 mg/dl Calcium Level 8.0 mg/dl Magnesium Level 2.0 mg/dl Test 02/21/17 08:12 Bedside Glucose 158 mg/dl Assessment and Plan Patient with the left hand postoperative infection at the 3rd and 4th digit amputation site now s/p I & D with debridement of surrounding tissues. The patient has had polymicrobial infection at this site previously, and most recently grew Enterococcus, MSSA, anaerobic bacteria, and yeast non Amelia albicans. The patient is currently on IV Unasyn, Caspofungin, and vancomycin. Patient is hoping to be discharged home. New operative culture only growing Coag -Negative staph so far. If this patient is discharged to nursing facility, would continue IV Unasyn and IV caspofungin for at least 1 more week, but if this patient is discharged home, recommend discharge on PO Augmentin and PO fluconazole with close follow up. He will likely need at least 2-3 more weeks of abx total with ID follow up before discontinuation of abx therapy. Case reviewed and agree with above assessment.
--- NOTE | 2017-02-21 11:44 | Progress Note ---
Subjective Date of Service: Feb 21, 2017. Subjective Pt evaluation today including: conversation w/ patient, conversation w/ family , physical exam, chart review, lab review, review of studies, review of inpatient medication list Had I&D of the left hand wound yesterday, currently on wound vac No complaining, blood glucose better controlled Problem List Medical Problems: (1) Diabetes Status: Chronic (2) Hyperglycemia Status: Acute (3) Post op infection Status: Acute Review of Systems Constitutional: No fever, No chills, No sweats, No weight loss, No weakness, No fatigue, No problem reported Eyes: No worsening of vision, No eye pain, No redness, No discharge, No diplopia ENT: No hearing loss, No unusual epistaxis, No nasal symptoms, No sore throat, No tinnitus, No dental problems, No trouble swallowing Respiratory: No cough, No sputum, No wheezing, No shortness of breath, No dyspnea on exertion, No dyspnea at rest, No hemoptysis Cardiac: No chest pain, No orthopnea, No PND, No edema, No claudication, No palpitations Abdomen: No pain, No nausea, No vomiting, No diarrhea, No constipation Musculoskeletal: + joint pain ( left hand wounds pain better controlled), No muscle pain, No swelling, No calf pain Male : No dysuria, No urinary frequency, No incontinence, No nocturia more than once/night, No slowing stream, No hematuria Neurologic: No memory loss, No paralysis, No weakness, No numbness/tingling, No vertigo, No balance problems Psychiatric: No depression symptoms, No anhedonism, No anxiety, No insomnia, No substance abuse Heme: No abnormal bleeding/bruising, No clotting problems, No swollen lymph nodes, No night sweats Endo: No fatigue, No excessive thirst, No excessive urination Skin: No rash, No itch, No new/changing skin lesions, No color change, No bleeding Objective Vital Signs Date Time Temp Pulse Resp B/P (MAP) Pulse Ox O2 Delivery O2 Flow Rate FiO2 02/21/17 08:01 37.0 66 18 136/77 (96) 97 Room Air 02/21/17 08:00 Room Air 02/21/17 00:52 36.8 76 16 92/54 (67) 97 02/20/17 23:59 Room Air 02/20/17 16:00 96 Room Air 02/20/17 15:54 36.6 78 18 127/75 (92) 96 Room Air Physical Exam General Appearance: WD/WN, no apparent distress Eyes: normal inspection, PERRL, EOMI, sclerae normal ENT: normal ENT inspection, hearing grossly normal, pharynx normal Neck: supple, no adenopathy, thyroid normal, no JVD, no carotid bruits, trachea midline Respiratory/Chest: chest non-tender, lungs clear, normal breath sounds, no respiratory distress, no accessory muscle use Cardiovascular: regular rate, rhythm, no edema, no gallop, no JVD, no murmur Abdomen: normal bowel sounds, non tender, soft, no organomegaly, no pulsatile mass Extremities: non-tender, normal inspection, no pedal edema, no calf tenderness , normal capillary refill, pelvis stable, + pertinent finding (wounds in dressing with wound vac) Neurologic/Psychiatric: midwife practitioner II-XII nml as tested, no motor/sensory deficits, alert, normal mood/affect, oriented x 3, + abnormal cerebellar tests Skin: normal color, warm/dry, no rash Lymphatic: no adenopathy Laboratory Results Last 24 Hours Test 02/20/17 16:42 02/20/17 19:51 02/21/17 05:50 02/21/17 08:12 Bedside Glucose 151 mg/dl 188 mg/dl 158 mg/dl White Blood Count 3.81 K/uL Red Blood Count 3.98 M/uL Hemoglobin 10.7 g/dL Hematocrit 32.1 % Mean Corpuscular Volume 80.7 fL Mean Corpuscular Hemoglobin 26.9 pg Mean Corpuscular Hemoglobin Concent 33.3 g/dl RDW Standard Deviation 40.1 fL RDW Coefficient of Variation 13.7 % Platelet Count 135 K/uL Mean Platelet Volume 8.5 fL Sodium Level 141 mmol/L Potassium Level 4.0 mmol/L Chloride Level 107 mmol/L Carbon Dioxide Level 27 mmol/L Anion Gap 7.0 mmol/L Blood Urea Nitrogen 16 mg/dl Creatinine 0.85 mg/dl Est Creatinine Clear Calc Drug Dose 82.1 ml/min Estimated GFR () 103.0 Estimated GFR (Non- 88.9 BUN/Creatinine Ratio 18.6 Random Glucose 167 mg/dl Calcium Level 8.0 mg/dl Magnesium Level 2.0 mg/dl Assessment and Plan 71 y/o male on 02/18/2017 with L Hand Cellulitis 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 PMHx of T2DM and HTN who presents to the ED L Hand Cellulitis S/P 3rd-4th Finger Amputation on 01/25 S/P I&D on 02/19/2017 POD 2 s/p I&D Left hand. Orthopedic follow-up , recommend follow up with dr smith 10-14 days after discharge. please call for appt at [phone] keep left hand elevated. move the fingers in and out. keep VAC in place. - Continue Unasyn 1.5 g IV Q6H caspofungin and Vancomycin - Surgeon and infectious disease on the case - Possible need superintendent terminal IV antibiotic, picc line has inserted Uncontrolled T2DM: Likely due to medicine noncompliant, patient did report he do not using insulin at home Blood glucose getting better today, which is possible from the tighten of the insulin sliding scale CF - A1c - 14.4 - Hold home 70/30 and 75/25 - recommend D/Cing this regimen - patient report inconvenience - question compliance -- Reporting a sliding scale with each - would recommend against these formulations due to difficulty with efficacy and peak times - Lantus 13 units BID and SSI, increase sliding scale correction factor, request conservation educator to talk more -- Received Lantus 6 units x 1 dose this AM while NPO - Recommend revised insulin regimen that promotes compliance and ease at D/C -- Would recommend a 1-2 times a day Lantus with either set meal time coverage - will assess insulin needs in hospital and develop a plan - Lipitor 20 mg BID - reports no H/O HLD but given due to DM HTN: Intermittent CP: No chest pain The above condition stable DVT Prophylaxis: BERTA/SCDs - Avoid chemical prophylaxis with wash-out/debridement Code Status: FULL RESUSCITATION Disposition: - Wash-out 02/19 per orthopedics was done - Adjust insulin regimen - Waiting for sensitivities on the culture and ID input for appropriate antibiotic to be continued -Has several discussion with patient about the snf IV infusion and blood glucose care, -Because patient has none compliance significantly, poor controlled blood glucose will affect the wound healing and recovery of his severe infection - With present of nurse, talked to the patient again, he continued to decline to go to snf for short period of antibiotic infusion and blood glucose control - Call to patient's daughter's phone number, will like to have daughter talk to him more about the benefit to the snf. Possible discharge tomorrow Continued [facility] stay due to: multiple IV medications needed Discharge planning: home
[2017-02-21 15:53] VITALS: BP 141/72; PULSE 70; TEMP 36.8; O2SAT 97
[2017-02-21 16:00] VITALS: O2SAT 97
[2017-02-21] MEDS: TEMAZEPAM 15 MG CAP PO SCH (22:03)
[2017-02-22 00:34] VITALS: BP 100/64; PULSE 69; TEMP 36.5; O2SAT 96
[2017-02-22] MEDS: AMPICILLIN/SULBACTAM SOD INJ 1,500 MG in SODIUM CHLORIDE 0.9% 100ML 100 ML IV SCH ×4 (02:37→21:11)
[2017-02-22 07:27] VITALS: BP 130/76; PULSE 67; TEMP 36.7; O2SAT 96
[2017-02-22] MEDS: VANCOMYCIN INJ 1,150 MG in SODIUM CHLORIDE 0.9% 250ML 250 ML IV SCH (07:44)
[2017-02-22] MEDS: ATORVASTATIN 20 MG TAB PO SCH ×2 (07:50→23:03)
[2017-02-22] MEDS: ISOSORBIDE MONONITRATE 30 MG TABCR PO SCH (07:50)
[2017-02-22] MEDS: LOSARTAN POTASSIUM 25 MG TAB PO SCH (07:51)
[2017-02-22] MEDS: INSULIN ASPART 100 UNITS/ML 3 ML PEN SC SCH ×4 (08:54→21:20)
[2017-02-22] MEDS: INSULIN GLARGINE SOLOSTAR 100 UNITS/ML 3 ML PEN SC SCH ×2 (08:54→21:20)
[2017-02-22] MEDS: CASPOFUNGIN INJ 50 MG in SODIUM CHLORIDE 0.9% 250ML 250 ML IV SCH (08:56)
--- NOTE | 2017-02-22 15:04 | Progress Note ---
Subjective Date of Service: Feb 22, 2017. Subjective Pt evaluation today including: conversation w/ patient, conversation w/ family , physical exam, chart review, lab review, review of studies, review of inpatient medication list And doing okay, wound VAC in place , left hand pain well controlled No other complaint Problem List Medical Problems: (1) Diabetes Status: Chronic (2) Hyperglycemia Status: Acute (3) Post op infection Status: Acute Review of Systems Constitutional: + fatigue, No fever, No chills, No sweats, No weight loss, No weakness, No problem reported Eyes: No worsening of vision, No eye pain, No redness, No discharge, No diplopia ENT: No hearing loss, No unusual epistaxis, No nasal symptoms, No sore throat, No tinnitus, No dental problems, No trouble swallowing Respiratory: No cough, No sputum, No wheezing, No shortness of breath, No dyspnea on exertion, No dyspnea at rest, No hemoptysis Cardiac: No chest pain, No orthopnea, No PND, No edema, No claudication, No palpitations Abdomen: No pain, No nausea, No vomiting, No diarrhea, No constipation Musculoskeletal: + joint pain, No muscle pain, No swelling, No calf pain Male : No dysuria, No urinary frequency, No incontinence, No nocturia more than once/night, No slowing stream, No hematuria Neurologic: No memory loss, No paralysis, No weakness, No numbness/tingling, No vertigo, No balance problems Psychiatric: No depression symptoms, No anhedonism, No anxiety, No insomnia, No substance abuse Heme: No abnormal bleeding/bruising, No clotting problems, No swollen lymph nodes, No night sweats Endo: No fatigue, No excessive thirst, No excessive urination Skin: No rash, No itch, No new/changing skin lesions, No color change, No bleeding Objective Vital Signs Date Time Temp Pulse Resp B/P (MAP) Pulse Ox O2 Delivery O2 Flow Rate FiO2 02/22/17 08:00 Room Air 02/22/17 07:27 36.7 67 18 130/76 (94) 96 Room Air 02/22/17 00:34 36.5 69 16 100/64 (76) 96 02/22/17 00:00 Room Air 02/21/17 16:00 97 Room Air 02/21/17 15:53 36.8 70 19 141/72 (95) 97 Room Air Physical Exam General Appearance: WD/WN, no apparent distress Eyes: normal inspection, PERRL, EOMI, sclerae normal ENT: normal ENT inspection, hearing grossly normal, pharynx normal Neck: supple, no adenopathy, thyroid normal, no JVD, no carotid bruits, trachea midline Respiratory/Chest: chest non-tender, lungs clear, normal breath sounds, no respiratory distress, no accessory muscle use Cardiovascular: regular rate, rhythm, no edema, no gallop, no JVD, no murmur Abdomen: normal bowel sounds, non tender, soft, no organomegaly, no pulsatile mass Extremities: normal range of motion, non-tender, normal inspection, no pedal edema, no calf tenderness, normal capillary refill, pelvis stable Neurologic/Psychiatric: vp product management II-XII nml as tested, no motor/sensory deficits, alert, normal mood/affect, oriented x 3 Skin: normal color, warm/dry, no rash Lymphatic: no adenopathy Laboratory Results Last 24 Hours Test 02/21/17 17:19 02/21/17 20:58 02/22/17 07:34 02/22/17 11:06 Bedside Glucose 142 mg/dl 171 mg/dl 131 mg/dl 170 mg/dl Assessment and Plan 71 y/o male on 02/18/2017 with L Hand Cellulitis 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 PMHx of T2DM and HTN who presents to the ED L Hand Cellulitis S/P 3rd-4th Finger Amputation on 01/25 S/P I&D on 02/19/2017 POD 3 s/p I&D Left hand. Orthopedic follow-up , recommend follow up with dr smith 10-14 days after discharge. please call for appt at [facility] [phone] keep left hand elevated. move the fingers in and out. keep VAC in place. - Continue Unasyn 1.5 g IV Q6H caspofungin - Surgeon and infectious disease on the case - Possible need correction IV antibiotic, picc line has inserted - Cultures shows COAG NEG STAPHYLOCOCCUS, GARDNERELLA-LIKE BACILLI, and YEAST NOT CLINT ALBICANS Recommend infectious disease, If this patient is discharged to nursing facility , would continue IV Unasyn and IV caspofungin for at least 1 more week, but if this patient is discharged home, recommend discharge on PO Augmentin and PO fluconazole with close follow up. He will likely need at least 2-3 more weeks of abx total with ID follow up before discontinuation of abx therapy. Discussed with Dr. Puente, updated to him about patient's significant medicine noncompliant with A1c 14 and possible bad consequence if not well treated, decide to keep patient over the weekend for IV antibiotics and good blood glucose control,, talked to patient about the plan, he agreed. They'll recommend PO Augmentin and PO fluconazole for 2 weeks, and with close follow up Uncontrolled T2DM: Likely due to medicine noncompliant, patient did report he do not using insulin at home Blood glucose getting better controlled, around 1:30 to 170 - A1c - 14.4 - Hold home 70/30 and 75/25 - recommend D/Cing this regimen - patient report inconvenience - question compliance -- Reporting a sliding scale with each - would recommend against these formulations due to difficulty with efficacy and peak times - Lantus 13 units BID and SSI, increase sliding scale correction factor, request family life educator to talk more -- Received Lantus 6 units x 1 dose this AM while NPO - Recommend revised insulin regimen that promotes compliance and ease at D/C -- Would recommend a 1-2 times a day Lantus with either set meal time coverage - will assess insulin needs in hospital and develop a plan - Lipitor 20 mg BID - reports no H/O HLD but given due to DM HTN: Intermittent CP: No chest pain The above condition stable DVT Prophylaxis: BERTA/SCDs - Avoid chemical prophylaxis with wash-out/debridement Code Status: FULL RESUSCITATION GI and DVT prophylaxis Continued [facility] stay due to: multiple IV medications needed Discharge planning: home
[2017-02-22 16:10] VITALS: BP 150/74; PULSE 80; TEMP 36.5; O2SAT 97
[2017-02-22] MEDS: TEMAZEPAM 15 MG CAP PO SCH (21:22)
[2017-02-23 00:11] VITALS: BP 108/56; PULSE 71; TEMP 36.7; O2SAT 100
[2017-02-23] MEDS: HYDROCODONE/ACETAMOPHEN 5/325MG TAB PO PRN ×2 (00:42→22:43)
[2017-02-23] MEDS: AMPICILLIN/SULBACTAM SOD INJ 1,500 MG in SODIUM CHLORIDE 0.9% 100ML 100 ML IV SCH ×4 (02:06→21:42)
[2017-02-23 06:51] LABS: BASO % 0.8 %; BASO ABS # 0.03 K/uL (0-0.2); COMPLETE YES; EOS % 9.1 %; HEMATOCRIT 33.2 % (42-52); IG% 0.3 %; LYMPH % 32.6 %; LYMPH ABS # 1.25 K/uL (1.2-3.4); MEAN CORPUSCULAR HEMOGLOBIN 25.7 pg (25-34); MEAN CORPUSCULAR HGB CONC 32.5 g/dl (32-36); MEAN PLATELET VOLUME 8.8 fL (7.4-10.4); MONO % 10.2 %; PLATELET COUNT 139 K/uL (130-400); WHITE BLOOD COUNT 3.83 K/uL (4.8-10.8)
[2017-02-23 07:23] LABS: BUN/CREATININE RATIO 22.3 (10-20); CALCIUM 7.8 mg/dl (8.5-10.1); CREATININE 0.74 mg/dl (0.60-1.40); POTASSIUM 3.4 mmol/L (3.5-5.1)
[2017-02-23] MEDS ORDERED: VANCOMYCIN TROUGH SCH (07:30)
[2017-02-23] MEDS: CASPOFUNGIN INJ 50 MG in SODIUM CHLORIDE 0.9% 250ML 250 ML IV SCH (07:43)
[2017-02-23 08:38] VITALS: BP 150/81; PULSE 69; TEMP 36.7; O2SAT 97
[2017-02-23] MEDS: ATORVASTATIN 20 MG TAB PO SCH ×2 (08:45→21:43)
[2017-02-23] MEDS: INSULIN ASPART 100 UNITS/ML 3 ML PEN SC SCH ×4 (09:22→21:46)
[2017-02-23] MEDS: INSULIN GLARGINE SOLOSTAR 100 UNITS/ML 3 ML PEN SC SCH ×2 (09:25→21:45)
[2017-02-23] MEDS ORDERED: POTASSIUM CHLORIDE 10 MEQ TABCR PO STA (09:38)
--- NOTE | 2017-02-23 09:41 | Progress Note ---
Subjective Date of Service: Feb 23, 2017. Subjective Pt evaluation today including: conversation w/ patient, conversation w/ family , physical exam, chart review, lab review, review of studies, conversation w/ analytics consultant, review of inpatient medication list Report left hand incision area mild swelling and mild pain, pain is fairly controlled Patient is eating breakfast, other complaint Deny fever and chill Problem List Medical Problems: (1) Diabetes Status: Chronic (2) Hyperglycemia Status: Acute (3) Post op infection Status: Acute Review of Systems Constitutional: No fever, No chills, No sweats, No weight loss, No weakness, No fatigue, No problem reported Eyes: No worsening of vision, No eye pain, No redness, No discharge, No diplopia ENT: No hearing loss, No unusual epistaxis, No nasal symptoms, No sore throat, No tinnitus, No dental problems, No trouble swallowing Respiratory: No cough, No sputum, No wheezing, No shortness of breath, No dyspnea on exertion, No dyspnea at rest, No hemoptysis Cardiac: No chest pain, No orthopnea, No PND, No edema, No claudication, No palpitations Abdomen: No pain, No nausea, No vomiting, No diarrhea, No constipation Musculoskeletal: + joint pain, No muscle pain, No swelling, No calf pain Male : No dysuria, No urinary frequency, No incontinence, No nocturia more than once/night, No slowing stream, No hematuria Neurologic: No memory loss, No paralysis, No weakness, No numbness/tingling, No vertigo, No balance problems Psychiatric: No depression symptoms, No anhedonism, No anxiety, No insomnia, No substance abuse Heme: No abnormal bleeding/bruising, No clotting problems, No swollen lymph nodes, No night sweats Endo: No fatigue, No excessive thirst, No excessive urination Skin: + see HPI, No rash, No itch, No new/changing skin lesions, No color change, No bleeding Objective Vital Signs Date Time Temp Pulse Resp B/P (MAP) Pulse Ox O2 Delivery O2 Flow Rate FiO2 02/23/17 08:38 36.7 69 18 150/81 (104) 97 Room Air 02/23/17 00:11 36.7 71 16 108/56 (73) 100 Room Air 02/23/17 00:00 Room Air 02/22/17 20:00 Room Air 02/22/17 16:10 36.5 80 19 150/74 (99) 97 Room Air Physical Exam General Appearance: WD/WN, no apparent distress, + pertinent finding ( conversational) Eyes: normal inspection, PERRL, EOMI, sclerae normal ENT: normal ENT inspection, hearing grossly normal, pharynx normal Neck: supple, no adenopathy, thyroid normal, no JVD, no carotid bruits, trachea midline Respiratory/Chest: chest non-tender, normal breath sounds, no respiratory distress, no accessory muscle use, + decreased breath sounds Cardiovascular: regular rate, rhythm, no edema, no gallop, no JVD, no murmur Abdomen: normal bowel sounds, non tender, soft, no organomegaly, no pulsatile mass Extremities: normal range of motion, non-tender, normal inspection, no pedal edema, no calf tenderness, normal capillary refill, pelvis stable, + pertinent finding (left hands on wound vacs, local wound looks okay, 3 other fingers mild swelling, mild limited range of motion, cap refill was normal) Neurologic/Psychiatric: online services manager II-XII nml as tested, no motor/sensory deficits, alert, normal mood/affect, oriented x 3 Skin: normal color, warm/dry, no rash Lymphatic: no adenopathy Laboratory Results Last 24 Hours Test 02/22/17 11:06 02/22/17 15:58 02/22/17 20:28 02/23/17 05:33 Bedside Glucose 170 mg/dl 197 mg/dl 136 mg/dl White Blood Count 3.83 K/uL Red Blood Count 4.20 M/uL Hemoglobin 10.8 g/dL Hematocrit 33.2 % Mean Corpuscular Volume 79.0 fL Mean Corpuscular Hemoglobin 25.7 pg Mean Corpuscular Hemoglobin Concent 32.5 g/dl Platelet Count 139 K/uL Mean Platelet Volume 8.8 fL Neutrophils (%) (Auto) 47.0 % Lymphocytes (%) (Auto) 32.6 % Monocytes (%) (Auto) 10.2 % Eosinophils (%) (Auto) 9.1 % Basophils (%) (Auto) 0.8 % Neutrophils # (Auto) 1.80 K/uL Lymphocytes # (Auto) 1.25 K/uL Monocytes # (Auto) 0.39 K/uL Eosinophils # (Auto) 0.35 K/uL Basophils # (Auto) 0.03 K/uL RDW Standard Deviation 38.8 fL RDW Coefficient of Variation 13.6 % Immature Granulocyte % (Auto) 0.3 % Immature Granulocyte # (Auto) 0.01 K/uL Sodium Level 143 mmol/L Potassium Level 3.4 mmol/L Chloride Level 108 mmol/L Carbon Dioxide Level 27 mmol/L Anion Gap 8.0 mmol/L Blood Urea Nitrogen 17 mg/dl Creatinine 0.74 mg/dl Est Creatinine Clear Calc Drug Dose 94.2 ml/min Estimated GFR () 109.1 Estimated GFR (Non- 94.1 BUN/Creatinine Ratio 22.3 Random Glucose 89 mg/dl Calcium Level 7.8 mg/dl Magnesium Level 2.0 mg/dl Test 02/23/17 07:54 Bedside Glucose 87 mg/dl Assessment and Plan 71 y/o male on 02/18/2017 with L Hand Cellulitis 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 PMHx of T2DM and HTN who presents to the ED L Hand Cellulitis S/P 3rd-4th Finger Amputation on 01/25, continue to be stable S/P I&D on 02/19/2017 POD 5 s/p I&D Left hand. Orthopedic follow-up , recommend follow up with dr smith 10-14 days after discharge. please call for appt at [facility] [phone] keep left hand elevated. move the fingers in and out. keep VAC in place. - Continue Unasyn 1.5 g IV Q6H caspofungin - Surgeon and infectious disease on the case - Possible need terminal computer operator IV antibiotic, picc line has inserted - Cultures shows COAG NEG STAPHYLOCOCCUS, GARDNERELLA-LIKE BACILLI, and YEAST NOT CLINT ALBICANS Recommended by infectious disease, If this patient is discharged to nursing facility, would continue IV Unasyn and IV caspofungin for at least 1 more week, but if this patient is discharged home, recommend discharge on PO Augmentin and PO fluconazole with close follow up. He will likely need at least 2-3 more weeks of abx total with ID follow up before discontinuation of abx therapy. Discussed with Dr. Puente, updated to him about patient's significant medicine noncompliant with A1c 14 and possible bad consequence if not well treated, decide to keep patient over the weekend for IV antibiotics and good blood glucose control,, talked to patient about the plan, he agreed. They'll recommend PO Augmentin and PO fluconazole for 2 weeks, and with close follow up Uncontrolled T2DM: Likely due to medicine noncompliant, patient did report he do not using insulin at home Blood glucose getting better controlled, around 90's to 190's - A1c - 14.4 - Hold home 70/30 and 75/25 - recommend D/Cing this regimen - patient report inconvenience - question compliance -- Reporting a sliding scale with each - would recommend against these formulations due to difficulty with efficacy and peak times - Lantus 13 units BID and SSI, increase sliding scale correction factor, request entrepreneurship program director to talk more -- Received Lantus 6 units x 1 dose this AM while NPO - Recommend revised insulin regimen that promotes compliance and ease at D/C -- Would recommend a 1-2 times a day Lantus with either set meal time coverage - will assess insulin needs in hospital and develop a plan - Lipitor 20 mg BID - reports no H/O HLD but given due to DM HTN: Intermittent CP upon admission: No more chest pain The above condition stable DVT Prophylaxis: BERTA/SCDs - heparin Code Status: FULL RESUSCITATION GI and DVT prophylaxis Continued [facility] stay due to: multiple IV medications needed Discharge planning: home
[2017-02-23] MEDS: LOSARTAN POTASSIUM 25 MG TAB PO SCH (10:04)
[2017-02-23] MEDS: ISOSORBIDE MONONITRATE 30 MG TABCR PO SCH (10:05)
[2017-02-23 11:35] LABS: INR 1.1 (0.9-1.1); PROTHROMBIN TIME (PATIENT) 11.3 SECONDS (9.0-12.0)
[2017-02-23 15:49] VITALS: BP 121/75; PULSE 67; TEMP 36.5; O2SAT 95
[2017-02-23] MEDS: TEMAZEPAM 15 MG CAP PO SCH (21:46)
[2017-02-23] MEDS: HEPARIN SOD 5000 UNIT/0.5 ML CARP SQ SCH (21:46)
[2017-02-24 00:49] VITALS: BP 141/82; PULSE 71; TEMP 36.4; O2SAT 97
[2017-02-24] MEDS: AMPICILLIN/SULBACTAM SOD INJ 1,500 MG in SODIUM CHLORIDE 0.9% 100ML 100 ML IV SCH ×4 (02:24→20:47)
[2017-02-24] MEDS: HYDROCODONE/ACETAMOPHEN 5/325MG TAB PO PRN (02:33)
[2017-02-24 07:15] VITALS: BP 147/83; PULSE 69; TEMP 36.6; O2SAT 98
[2017-02-24] MEDS: CASPOFUNGIN INJ 50 MG in SODIUM CHLORIDE 0.9% 250ML 250 ML IV SCH (07:28)
[2017-02-24] MEDS: ISOSORBIDE MONONITRATE 30 MG TABCR PO SCH (07:34)
[2017-02-24] MEDS: LOSARTAN POTASSIUM 25 MG TAB PO SCH (07:35)
[2017-02-24] MEDS: ATORVASTATIN 20 MG TAB PO SCH ×2 (07:35→20:47)
[2017-02-24] MEDS: INSULIN ASPART 100 UNITS/ML 3 ML PEN SC SCH ×4 (08:46→20:52)
[2017-02-24] MEDS: INSULIN GLARGINE SOLOSTAR 100 UNITS/ML 3 ML PEN SC SCH ×2 (08:47→20:50)
[2017-02-24] MEDS: HEPARIN SOD 5000 UNIT/0.5 ML CARP SQ SCH ×2 (08:48→20:49)
[2017-02-24 16:01] VITALS: BP 139/75; PULSE 63; TEMP 36.3; O2SAT 97
--- NOTE | 2017-02-24 16:14 | Hospitalist Progress Note ---
Hospitalist Progress Note Date of Service Feb 24, 2017. Subjective Pt evaluation today including: conversation w/ patient, physical exam, chart review, lab review, review of studies, review of inpatient medication list Patient seen and evaluated. No acute events overnight. Hand looks improved and reporting less pain and swelling. Wound vac in place. Verbalizes no complaints and is eager to return home. Patient with multiple social barriers resulting in non-compliance with medications. Given the risk of noncompliance due to confusion/literacy issues, simplified regimens will be more beneficial as confusing plans will result in no attempts at control. Plan for Lantus 26 units daily with just one injection and this can be monitored and adjusted - even though this may not be ideal one injection a day will provide more coverage than not taking his dosing as he was doing this at home and "forgetting doses" In regards to IV antibiotics he remained in hospital for IV coverage and will be converted to Augmentin and Fluconazole with careful follow-up with ID Constitutional: No fever, No chills Respiratory: No shortness of breath Cardiovascular: No chest pain Abdomen: No pain, No nausea, No vomiting, No diarrhea, No constipation Musculoskeletal: No swelling, No calf pain Male : No dysuria Heme: No abnormal bleeding/bruising Medications Current Inpatient Medications Medications (Trade) Dose Ordered Sig/Quinton Route Start Time Stop Time Status Last Admin Dose Admin Acetaminophen (Tylenol Tab) 650 mg Q4H PRN PO 02/18/17 15:00 03/20/17 14:59 Al Hydrox/Mg Hydrox/Simethicone (Maalox Max Susp) 15 ml Q4H PRN PO 02/18/17 15:00 03/20/17 14:59 Magnesium Hydroxide (Milk Of Magnesia Susp) 30 ml Q6H PRN PO 02/18/17 15:00 03/20/17 14:59 Polyethylene (Miralax Powder Packet) 17 gm DAILY PRN PO 02/18/17 15:00 03/20/17 14:59 Ondansetron HCl (Zofran Inj) 4 mg Q6H PRN IV 02/18/17 15:00 03/20/17 14:59 02/19/17 16:04 4 MG Atorvastatin Calcium (Lipitor Tab) 20 mg BID PO 02/18/17 20:00 03/20/17 20:59 02/24/17 07:35 20 MG Acetaminophen/ Hydrocodone Bitart ([place]et 5/325 Tab) 1-mild/ mod pain 2 -sev... Q4H PRN PO 02/18/17 15:00 03/04/17 14:59 02/24/17 02:33 1 TAB Losartan Potassium (coZAAR TAB) 25 mg DAILY PO 02/19/17 08:00 03/21/17 08:59 02/24/17 07:35 25 MG Temazepam (Restoril Cap) 15 mg HS PO 02/18/17 21:00 03/20/17 20:59 02/23/17 21:46 15 MG Isosorbide Mononitrate (Imdur Ext Rel Tab) 15 mg DAILY PO 02/19/17 08:00 03/21/17 07:59 02/24/17 07:34 15 MG Insulin Glargine (Lantus Solostar Pen) 13 unit Q12 SC 02/18/17 21:00 03/20/17 20:59 Future hold 02/24/17 08:47 13 UNIT Insulin Aspart (novoLOG ASPART) SLIDING SCALE If C... ACHS SC 02/18/17 18:00 03/20/17 17:59 02/24/17 12:31 6 UNITS Glucose (Glucose 40% Gel) 15-30 GRAMS 15 GRAMS... UD PRN PO 02/18/17 15:15 03/20/17 15:14 Glucose (Glucose Chew Tab) 4-8 Tablets 4 Tabl... UD PRN PO 02/18/17 15:15 03/20/17 15:14 Dextrose (Dextrose 50% 50ML Syringe) 25-50ML OF 50% DW IV FOR... UD PRN IV 02/18/17 15:15 03/20/17 15:14 Glucagon (Glucagon Inj) 1 mg UD PRN SQ 02/18/17 15:15 03/20/17 15:14 Ampicillin Sodium/ Sulbactam Sodium 1500 mg/Sodium Chloride 104 ml @ 200 mls/hr Q6H IV 02/18/17 20:00 02/28/17 15:14 02/24/17 14:07 200 MLS/HR Morphine Sulfate (MoRPHine SULFATE INJ) 1 mg Q4H PRN IV 02/19/17 09:00 03/05/17 08:59 Morphine Sulfate (MoRPHine SULFATE INJ) 2 mg Q4H PRN IV 02/19/17 09:00 03/05/17 08:59 Caspofungin 50 mg/ Sodium Chloride 260 ml @ 250 mls/hr DAILY@0800 IV 02/20/17 08:00 03/01/17 07:59 02/24/17 07:28 250 MLS/HR Heparin Sodium (Porcine) (Heparin 10 Unit/ ml 5 ml Flush) 5 ml PRN PRN FLUSH 02/20/17 15:30 03/22/17 15:29 02/24/17 15:05 5 ML Heparin Sodium (Porcine) (Heparin Sq 5000 Unit/0.5ml) 5,000 unit Q12 SQ 02/23/17 21:00 03/25/17 20:59 02/24/17 08:48 5,000 UNIT Objective Vital Signs Date Time Temp Pulse Resp B/P (MAP) Pulse Ox O2 Delivery O2 Flow Rate FiO2 02/24/17 08:00 Room Air 02/24/17 07:15 36.6 69 18 147/83 (104) 98 Room Air 02/24/17 00:49 36.4 71 18 141/82 (101) 97 Room Air 02/24/17 00:00 Room Air 02/23/17 20:00 Room Air 02/23/17 16:00 Room Air Physical Exam General Appearance: WD/WN, no apparent distress Eyes: sclerae normal ENT: hearing grossly normal Neck: supple, no JVD, trachea midline Respiratory/Chest: lungs clear, normal breath sounds, no respiratory distress, no accessory muscle use Cardiovascular: regular rate, rhythm, no gallop, no murmur Abdomen: normal bowel sounds, non tender, soft Extremities: no pedal edema, no calf tenderness, + pertinent finding (wound vac on L hand with amputations; erythema improved and cap refill adequate; ulnar and radial pulses 2+) Neurologic/Psychiatric: alert, oriented x 3 Skin: normal color, warm/dry Laboratory Results Last 24 Hours Test 02/23/17 16:33 02/23/17 19:58 02/24/17 07:29 02/24/17 11:27 Bedside Glucose 116 mg/dl 131 mg/dl 102 mg/dl 160 mg/dl Assessment and Plan 71 y/o male admitted on 02/18/2017 with L Hand Cellulitis 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 L Hand Cellulitis S/P 3rd-4th Finger Amputation on 01/25: IMPROVING - S/P I&D on 02/19 - Unasyn 1.5 g IV Q6H and Vancomycin - Will hold daily ASA in anticipation of washout - Orthopedic follow-up with Dr. Ledezma in 10-14 days after D/C -- [phone] - ID following - recommendations reviewed - plan for oral conversion of Augmentin and Fluconazole 2-3 weeks with outpatient follow-up - Plan for Unasyn and Caspofungin in AM of 02/25 and can D/C PICC line after dose Uncontrolled T2DM: Medicine Noncompliance - A1c 14.4: CONTROL IMPROVING - D/C home 70/30 and 75/25 - Ideally he would benefit from basal insulin and mealtime coverage but due to complicate regimens patient admits to non-compliance and a simplified regimen, even if not completely adequate dosing, is better than no coverage as this would be the outcome if patient continues multiple injections - Plan for Lantus 26 units SC daily with monitoring and this can be adjusted as necessary -- Recommend A1c recheck in 3 months - Lipitor 20 mg BID - reports no H/O HLD but given due to DM HTN: - Losartan 25 mg daily Intermittent CP: No CP reported - Denies cardiac history - denies PE/DVT, [place], CHF - Reports nitrate is for intermittent CP alone - continue DVT Prophylaxis: Heparin 5000 units SC Q12H Code Status: FULL RESUSCITATION Disposition: - Home with [facility] tomorrow -- PICC line can be removed after AM Unasyn and Caspofungin and will be converted to oral Augmentin and Fluconazole -- Wound vac being arranged -- Plan for Lantus 26 units SC daily Continued [facility] stay due to: multiple IV medications needed Discharge planning: home with home health
--- NOTE | 2017-02-24 17:01 | Discharge Instructions ---
Discharge Instructions Date of Service Feb 24, 2017. Admission Reason for Admission: Cellulitis Of Left Hand Discharge Discharge Diagnosis / Problem: Cellulitis of Left Hand Discharge Goals Goal(s): Decrease discomfort, Improve function, Increase independence Activity Recommendations Activity Limitations: as noted below (see instructions) . Instructions / Follow-Up Instructions / Follow-Up Left Hand Infection: - You will be started on Augmentin which is an antibiotic and Fluconazole which helps with yeast infection that grew in your wound -- You will continue on this medications for the next 2 weeks and will follow up with infectious disease (antibiotic/infection doctor) and may need longer antibiotics depending on how your hand looks - IT IS EXTREMELY IMPORTANT TO CONTINUE YOUR ANTIBIOTIC. DO NOT SKIP DOSES. IF YOU FORGET A DOSE, TAKE IT SOON YOU REMEMBER - Directions from orthopedics -- Follow-up with Dr. Ledezma in 10-14 days. Please call his office at [phone] -- Keep hand elevated and move the fingers in and out -- Keep wound vac in place Diabetes: - STOP YOUR HOME INSULIN THAT YOU WERE USING PRIOR TO COMING TO THE HOSPITAL - Take Lantus 26 units once a day -- TAKE THIS DOSE AT THE SAME TIME EACH DAY -- Make sure you are injecting this medication into fat tissue. Since your belly is thin you may need to pinch up the skin to make sure the injection is not going into your muscle Follow-Up: - Please follow-up with Dr. Ledezma in 10-14 days - Please follow-up with Infectious Disease in 7-10 days - Please see your family doctor in 7-10 days Current Hospital Diet Patient's current hospital diet: Diabetes Type 2 Diet Discharge Diet Recommended Diet: Diabetes Type 2 Diet Procedures Procedures Performed: Incision and Drainage Left Hand Application of Wound Vac Pending Studies Studies pending at discharge: no Laboratory Results Hemoglobin A1c Test 02/19/17 08:53 Range/Units Estimated Average Glucose 367 mg/dl Hemoglobin A1c 14.4 H 4.5-5.6 % Medical Emergencies . Who to Call and When: Medical Emergencies: If at any time you feel your situation is an emergency, please call 911 immediately. . Non-Emergent Contact Non-Emergency issues call your: Primary Care Provider Call Non-Emergent contact if: you have a fever, your pain is concerning you, you have any medication questions . . "Provider Documentation" section prepared by Lexi Becerra. . Trace Clerk Recommendations Trace Clerk Recommendations: follow up with dr ledezma 10-14 days after discharge. please call for appt at [facility] [phone] keep left hand elevated. move the fingers in and out. keep VAC in place. VTE Core Measure Inpt VTE Proph given/why not?: Unfractionated heparin SQ, T.E.Evaristo. Stockings, SCD 's
[2017-02-24] MEDS: TEMAZEPAM 15 MG CAP PO SCH (20:47)
[2017-02-24 22:23] VITALS: BP 123/69; PULSE 72; TEMP 36.8; O2SAT 98
[2017-02-25] MEDS: AMPICILLIN/SULBACTAM SOD INJ 1,500 MG in SODIUM CHLORIDE 0.9% 100ML 100 ML IV SCH ×2 (02:07→07:41)
[2017-02-25] MEDS: HYDROCODONE/ACETAMOPHEN 5/325MG TAB PO PRN (02:08)
[2017-02-25 06:18] LABS: HEMATOCRIT 32.7 % (42-52); MEAN CELL VOLUME 79.6 fL (80-100); MEAN CORPUSCULAR HEMOGLOBIN 27.3 pg (25-34); MEAN CORPUSCULAR HGB CONC 34.3 g/dl (32-36); MEAN PLATELET VOLUME 8.6 fL (7.4-10.4); PLATELET COUNT 138 K/uL (130-400); RED BLOOD COUNT 4.11 M/uL (4.7-6.1); WHITE BLOOD COUNT 4.51 K/uL (4.8-10.8)
[2017-02-25 06:47] LABS: BUN/CREATININE RATIO 21.8 (10-20); CALCIUM 8.2 mg/dl (8.5-10.1); CREATININE 0.89 mg/dl (0.60-1.40); POTASSIUM 4.1 mmol/L (3.5-5.1)
[2017-02-25] MEDS: LOSARTAN POTASSIUM 25 MG TAB PO SCH (07:42)
[2017-02-25] MEDS: ISOSORBIDE MONONITRATE 30 MG TABCR PO SCH (07:42)
[2017-02-25] MEDS: ATORVASTATIN 20 MG TAB PO SCH (07:43)
[2017-02-25] MEDS: HEPARIN SOD 5000 UNIT/0.5 ML CARP SQ SCH (07:43)
[2017-02-25 07:51] VITALS: BP 125/65; PULSE 62; TEMP 36.4; O2SAT 96
[2017-02-25] MEDS: CASPOFUNGIN INJ 50 MG in SODIUM CHLORIDE 0.9% 250ML 250 ML IV SCH (08:32)
[2017-02-25] MEDS: INSULIN ASPART 100 UNITS/ML 3 ML PEN SC SCH (08:40)
[2017-02-25] MEDS ORDERED: INSULIN GLARGINE SOLOSTAR 100 UNITS/ML 3 ML PEN SC ONE (09:00)
[2017-02-25] MEDS ORDERED: INSDGIPEN SC (11:06)
[2017-02-25] MEDS ORDERED: FLUC200T4 PO (11:06)
[2017-02-25] MEDS ORDERED: AMOX875T PO (11:06)
[2017-02-25] MEDS ORDERED: HYDR-5688 PO (11:06)
[2017-02-25 11:07] VITALS: BP 125/65; PULSE 62; TEMP 36.4; O2SAT 96
--- NOTE | 2017-02-25 11:25 | Infectious Disease Progress Nt ---
Progress Note Date of Service Feb 25, 2017. Subjective Pt evaluation today including: conversation w/ patient, physical exam, chart review, lab review, review of studies, review of inpatient medication list Patient is feeling well today. He is hoping for D/C this afternoon. His WBC count today was 4.51. Creatinine was 0.89 today. He is currently on IV Caspofungin and Unasyn and tolerating these well. Wound culture is now growing Gardnerella-Like Bacilli, yeast non-amelia Albicans, and coag-negative staph. I did also discuss this patient with Ana Maria, the wound care nurse. Wound pictures were reviewed. Patient's wound is improving. Wound vac still in place. He is complaining of no pain but tenderness around the wound vac. All Other Systems: Reviewed and Negative Medications Current Inpatient Medications Medications (Trade) Dose Ordered Sig/Quinton Route Start Time Stop Time Status Last Admin Dose Admin Acetaminophen (Tylenol Tab) 650 mg Q4H PRN PO 02/18/17 15:00 03/20/17 14:59 Al Hydrox/Mg Hydrox/Simethicone (Maalox Max Susp) 15 ml Q4H PRN PO 02/18/17 15:00 03/20/17 14:59 Magnesium Hydroxide (Milk Of Magnesia Susp) 30 ml Q6H PRN PO 02/18/17 15:00 03/20/17 14:59 Polyethylene (Miralax Powder Packet) 17 gm DAILY PRN PO 02/18/17 15:00 03/20/17 14:59 Ondansetron HCl (Zofran Inj) 4 mg Q6H PRN IV 02/18/17 15:00 03/20/17 14:59 02/19/17 16:04 4 MG Atorvastatin Calcium (Lipitor Tab) 20 mg BID PO 02/18/17 20:00 03/20/17 20:59 02/25/17 07:43 20 MG Acetaminophen/ Hydrocodone Bitart ([place] 5/325 Tab) 1-mild/ mod pain 2 -sev... Q4H PRN PO 02/18/17 15:00 03/04/17 14:59 02/25/17 02:08 2 TAB Losartan Potassium (coZAAR TAB) 25 mg DAILY PO 02/19/17 08:00 03/21/17 08:59 6/12/17 07:42 25 MG Temazepam (Restoril Cap) 15 mg HS PO 02/18/17 21:00 03/20/17 20:59 02/24/17 20:47 15 MG Isosorbide Mononitrate (Imdur Ext Rel Tab) 15 mg DAILY PO 02/19/17 08:00 03/21/17 07:59 02/25/17 07:42 15 MG Insulin Aspart (novoLOG ASPART) SLIDING SCALE If C... ACHS SC 02/18/17 18:00 03/20/17 17:59 02/25/17 08:40 7 UNITS Glucose (Glucose 40% Gel) 15-30 GRAMS 15 GRAMS... UD PRN PO 02/18/17 15:15 03/20/17 15:14 Glucose (Glucose Chew Tab) 4-8 Tablets 4 Tabl... UD PRN PO 02/18/17 15:15 03/20/17 15:14 Dextrose (Dextrose 50% 50ML Syringe) 25-50ML OF 50% DW IV FOR... UD PRN IV 02/18/17 15:15 03/20/17 15:14 Glucagon (Glucagon Inj) 1 mg UD PRN SQ 02/18/17 15:15 03/20/17 15:14 Ampicillin Sodium/ Sulbactam Sodium 1500 mg/Sodium Chloride 104 ml @ 200 mls/hr Q6H IV 02/18/17 20:00 02/28/17 15:14 02/25/17 07:41 200 MLS/HR Morphine Sulfate (MoRPHine SULFATE INJ) 1 mg Q4H PRN IV 02/19/17 09:00 03/05/17 08:59 Morphine Sulfate (MoRPHine SULFATE INJ) 2 mg Q4H PRN IV 02/19/17 09:00 03/05/17 08:59 Caspofungin 50 mg/ Sodium Chloride 260 ml @ 250 mls/hr DAILY@0800 IV 02/20/17 08:00 03/01/17 07:59 02/25/17 08:32 250 MLS/HR Heparin Sodium (Porcine) (Heparin 10 Unit/ ml 5 ml Flush) 5 ml PRN PRN FLUSH 02/20/17 15:30 03/22/17 15:29 02/25/17 05:40 5 ML Heparin Sodium (Porcine) (Heparin Sq 5000 Unit/0.5ml) 5,000 unit Q12 SQ 02/23/17 21:00 03/25/17 20:59 02/24/17 20:49 5,000 UNIT Objective Vital Signs Date Time Temp Pulse Resp B/P (MAP) Pulse Ox O2 Delivery O2 Flow Rate FiO2 02/25/17 11:07 36.4 62 18 96 Room Air 02/25/17 08:52 Room Air 02/25/17 07:51 36.4 62 18 125/65 (85) 96 Room Air 02/25/17 00:00 Room Air 02/24/17 22:23 36.8 72 16 123/69 (87) 98 Room Air 02/24/17 20:00 Room Air 02/24/17 16:01 36.3 63 20 139/75 (96) 97 Room Air 02/24/17 16:00 Room Air Physical Exam General Appearance: WD/WN, no apparent distress Eyes: normal inspection, sclerae normal ENT: hearing grossly normal Neck: supple, trachea midline Respiratory/Chest: no respiratory distress, no accessory muscle use Cardiovascular: regular rate, rhythm Extremities: + pertinent finding (left hand wound vac in place) Neurologic/Psychiatric: alert, normal mood/affect Skin: warm/dry, no rash Laboratory Results Item Value Date Time Gram Stain - Final Complete 02/19/17 1845 Drainage-Deep Hand Left Last 24 Hours Test 02/24/17 11:27 02/24/17 16:35 02/24/17 20:10 02/25/17 05:43 Bedside Glucose 160 mg/dl 176 mg/dl 93 mg/dl White Blood Count 4.51 K/uL Red Blood Count 4.11 M/uL Hemoglobin 11.2 g/dL Hematocrit 32.7 % Mean Corpuscular Volume 79.6 fL Mean Corpuscular Hemoglobin 27.3 pg Mean Corpuscular Hemoglobin Concent 34.3 g/dl RDW Standard Deviation 39.1 fL RDW Coefficient of Variation 13.7 % Platelet Count 138 K/uL Mean Platelet Volume 8.6 fL Sodium Level 141 mmol/L Potassium Level 4.1 mmol/L Chloride Level 106 mmol/L Carbon Dioxide Level 28 mmol/L Anion Gap 7.0 mmol/L Blood Urea Nitrogen 19 mg/dl Creatinine 0.89 mg/dl Est Creatinine Clear Calc Drug Dose 78.3 ml/min Estimated GFR () 101.1 Estimated GFR (Non- 87.2 BUN/Creatinine Ratio 21.8 Random Glucose 130 mg/dl Calcium Level 8.2 mg/dl Test 02/25/17 07:42 Bedside Glucose 104 mg/dl Assessment and Plan Patient with the left hand postoperative infection at the 3rd and 4th digit amputation site now s/p I & D with debridement of surrounding tissues. The patient has had polymicrobial infection at this site previously, and most recently grew Enterococcus, MSSA, anaerobic bacteria, and yeast non Amelia albicans. New culture is growing coag-negative staph, Yeast, and Gardnerella. He is currently on IV Unasyn and Caspofungin. I feel that he ultimately would benefit from continued IV therapy, but that is going to be very difficult with this patient at home. He is resistant to keeping the PICC line or going to rehab. Therefore, he likely will be discharged on PO Augmentin and PO Fluconazole. He will need ID follow up in 1-2 weeks after discharge. Case reviewed and agree with above assessment.
--- NOTE | 2017-02-25 14:29 | Discharge Summary ---
Discharge Summary Date of Service Feb 25, 2017. Discharge Summary Admission Date: Feb 18, 2017 at 15:04 Discharge Date: Feb 25, 2017 Discharge Disposition: Home with services Principal Diagnosis: left hand cellulitis Problems/Secondary Diagnoses: (1) Diabetes Status: Chronic Consultations: Orthopedic surgery Infectious disease Medication Reconciliation New Medications: Amoxicillin & Pot Clavulanate (Augmentin 875-125 mg) 1 Tab Tab 1 TAB PO BID for 14 Days, #28 TAB Fluconazole (Diflucan) 200 Mg Tab 1 TAB PO DAILY for 14 Days, #28 TAB Hydrocodone/Acetaminophen 5MG/325MG (Tracy 5MG/325MG) Tab 1 TABLET PO Q4 PRN for Pain, #30 TAB PRN PAIN Insulin Glargine (Lantus Solostar) 100 Unit/Ml Inj 26 UNITS SC QAM, #1 BOX Continued Medications: Aspirin (Aspirin Ec) 81 Mg Tab 81 MG PO DAILY Atorvastatin (Lipitor) 20 Mg Tab 20 MG PO BID, TAB Isosorbide Mononitrate (Isosorbide Mononitrate ER) 30 Mg Tabcr 15 MG PO DAILY Losartan Potassium (Cozaar) 25 Mg Tab 25 MG PO DAILY, TAB Temazepam (Restoril) 15 Mg Cap 15 MG PO HS, CAP Discontinued Medications: Hydrocodone/Acetaminophen 5MG/325MG (Tracy 5MG/325MG) Tab 1-2 TABS PO T2H-O1V PRN for Pain, TAB PRN PAIN Insulin Aspart 70/30 (Novolog Mix 70/30) Susp 1 DOSE SC UD, BTL INJECT 40 UNITS WITH BREAKFAST AND 30 UNITS WITH THE EVENING MEAL Insulin Lispro 75/25 (Humalog Mix 75/25) 100 Units/ Inj 1 DOSE SC UD, VIAL INJECT 50 UNITS 30 MINUTES BEFORE BREAKFAST AND SUPPER Oxycodone/Acetaminophen 5MG/325MG (Percocet 5MG/325MG) Tab 1-2 TABLETS PO T1N-Q4D PRN for Pain, TAB PAIN Discharge Exam Review of Systems: Constitutional: No fever, No chills, No sweats, No weakness ENT: No hearing loss, No unusual epistaxis, No nasal symptoms, No sore throat, No tinnitus Respiratory: No cough, No sputum, No wheezing, No shortness of breath, No dyspnea on exertion Cardiovascular: No chest pain, No orthopnea, No edema, No claudication Abdomen: No pain, No nausea, No vomiting, No diarrhea, No constipation Musculoskeletal: + joint pain, No muscle pain, No swelling, No calf pain Genitourinary - Male: No hematuria, No dysuria, No urinary frequency, No urinary urgency Psychiatric: No depression symptoms, No anhedonism, No anxiety, No insomnia Endocrine: No fatigue, No excessive thirst Integumentary: No rash, No itch Physical Exam: General Appearance: WD/WN, no apparent distress ENT: normal ENT inspection, hearing grossly normal, TMs normal, pharynx normal Neck: supple, no adenopathy, thyroid normal, no JVD Respiratory/Chest: chest non-tender, lungs clear, normal breath sounds, no respiratory distress Cardiovascular: regular rate, rhythm, no edema, no gallop, no JVD Abdomen / GI: normal bowel sounds, non tender, soft, no organomegaly Extremities: normal inspection, no calf tenderness, normal capillary refill , no pedal edema Neurologic/Psychiatric: alert, normal mood/affect, normal reflexes, oriented x 3 Skin: warm/dry, no rash, + pertinent finding (wound vac in place left hand) Hospital Course 71 y/o male on 02/18/2017 with L Hand Cellulitis 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, GARDNERELLA- LIKE BACILLI, and YEAST NOT CLINT ALBICANS Start pn PO Augmentin 875/125 BID and PO fluconazole 200 mg daily for 2 weeks, as pt poor candidate for IV therapy and refuses PICC line and acute rehab Discharge home with home health and wound vac, keep left hand elevated and cont to move fingers F/U with Dr Ledezma in 1-2 weeks F/U with Dr Puente in 1 week Uncontrolled T2DM Noncompliance with home regimen A1c - 14.4 Hold home 70/30 and 75/25 Continue lantus 26 units SC once daily on discharge HTN stable on cozaar DVT ppx with heparin FULL RESUSCITATION Total Time Spent: Greater than 30 minutes This includes examination of the patient, discharge planning, medication reconciliation, and communication with other providers. Discharge Instructions Please refer to the electronic Patient Visit Report (Discharge Instructions) for additional information.
[2017-03-11] MEDS ORDERED: AMOX875T PO (14:43)
[2017-04-17] MEDS ORDERED: AMOX875T PO (09:32)
[2017-04-17] MEDS ORDERED: FLUC100T4 PO (09:34)
== END 2017-02-25 12:00 | disposition home health service (06) | DRG 857 ==
LOC: C.EDB 12:07 → C.MS4W 15:04 → ENRESERV 15:21
PROVIDERS: ADMIT Hospitalist; ATTEND Hospitalist
PROC: 0JBK0ZZ Excision of Left Hand Subcutaneous Tissue and Fascia, Open Approach (ICD-10-PCS; principal; 2017-02-19 07:15)
PROC: 02HV33Z Insertion of Infusion Device into Superior Vena Cava, Percutaneous Approach (ICD-10-PCS; 2017-02-20)
DX: T81.4XXA Infection following a procedure, initial encounter (principal); B49 Unspecified mycosis; L03.114 Cellulitis of left upper limb; E11.69 Type 2 diabetes mellitus with other specified complication; I10 Essential (primary) hypertension; B95.7 Other staphylococcus as the cause of diseases classified elsewhere; E11.65 Type 2 diabetes mellitus with hyperglycemia; R07.9 Chest pain, unspecified; Y83.8 Other surgical procedures as the cause of abnormal reaction of the patient, or of later complication, without mention of misadventure at the time of the procedure; Y92.009 Unspecified place in unspecified non-institutional (private) residence as the place of occurrence of the external cause; Z89.022 Acquired absence of left finger(s); Z91.14 Patient's other noncompliance with medication regimen